=== PATIENT | female | born 1945 | race Caucasian/White ===

== ENCOUNTER → 2016-08-06 | Outpatient (REF) | payer MEDICARE, BC | LOC: M LAB REF 16:22 | PROVIDERS: ATTEND Family Medicine | DX: I48.2 Chronic atrial fibrillation (principal) ==

== ENCOUNTER → 2016-11-20 | Outpatient (REF) | payer MEDICARE, BC ==
[2016-11-20 16:06] LABS: AMYLASE 72 U/L (25-115)
[2016-11-21 11:00] LABS: CONTROL LINE HPYORI INT CTR LINE PRESENT
== END ==
LOC: M LAB REF 15:34
PROVIDERS: ATTEND Nurse Practitioner Adult Health
DX: R14.0 Abdominal distension (gaseous) (principal)

== ENCOUNTER → 2017-04-10 | Outpatient (CLI) | payer MEDICARE, BC | LOC: M RAD 07:31 | DX: R93.3 Abnormal findings on diagnostic imaging of other parts of digestive tract (principal) | CPT/HCPCS: J2805 ==

== ENCOUNTER → 2017-04-15 | Outpatient (CLI) | payer MEDICARE, BC | LOC: M RAD 07:15 | DX: R93.3 Abnormal findings on diagnostic imaging of other parts of digestive tract (principal); R19.4 Change in bowel habit; R14.3 Flatulence; R60.9 Edema, unspecified | CPT/HCPCS: 76705 ==

== ENCOUNTER → 2017-09-21 | Outpatient (REF) | payer MEDICARE, BC ==
[2017-09-23 14:12] LABS: TISSUE TRANSGLUTAMINASE IgG 4 U/mL (0-5)
[2017-09-23 14:12] LABS: ENDOMYSIAL ABY IgA Negative (Negative)
== END ==
LOC: M LAB REF 15:00
DX: R19.7 Diarrhea, unspecified (principal); R14.3 Flatulence
CPT/HCPCS: 86255

== ENCOUNTER → 2018-01-15 | Outpatient (REF) | payer MEDICARE, BC ==
[2018-01-15 13:21] LABS: CREATININE FOR GFR 1.29 MG/DL (0.55-1.30)
[2018-01-15 13:21] LABS: BLOOD UREA NITROGEN 25 MG/DL (7-18)
== END ==
LOC: M LABNEURO 12:09
DX: N18.9 Chronic kidney disease, unspecified (principal)
CPT/HCPCS: 82565

== ENCOUNTER → 2018-03-22 | Outpatient (REF) | payer MEDICARE, BC ==
[2018-03-25 00:31] LABS: PANCREATIC ELASTASE STOOL >500 (>200)
== END ==
LOC: M LAB REF 10:49
PROVIDERS: ATTEND Internal Medicine Gastroenterology
DX: R14.3 Flatulence (principal); R93.3 Abnormal findings on diagnostic imaging of other parts of digestive tract; R19.7 Diarrhea, unspecified

== ENCOUNTER → 2018-06-22 | Outpatient (REF) | payer MEDICARE, BC ==
[2018-06-22 19:11] LABS: INR 2.84; PROTHROMBIN TIME 30.5 SECONDS (12.1-14.4)
[2018-06-22 19:35] LABS: AMYLASE 69 U/L (25-115); GAMMA GLUTAMYLTRANSPEPTIDASE 192 U/L (5-55); LIPASE 217 U/L (73-393)
== END ==
LOC: M LAB REF 17:44
PROVIDERS: ATTEND Family Medicine
DX: R10.13 Epigastric pain (principal); R18.8 Other ascites

== ENCOUNTER → 2018-07-05 | Outpatient (CLI) | payer MEDICARE, BC ==
[~2018-07-05] MED LIST: ALDA50TA2 PO; ALPR0.254 PO; BIOT10009 PO; CARB25TA9 PO; CARD40TA PO; COUM2.5T17 PO; COZA1TAB PO; DILT120C77 PO; GAS-CAP4 PO; GNP150TA PO; JANU100T PO; KLOR10TA76 PO; METF500T13 PO; METO200T28 PO; PHILCAP4 PO; PRAV1TAB39 PO; PREV10CA PO; SERT-141 PO; TORS100T PO; TORS20TA2 PO; XANA0.25 PO; [UNRECOGNIZED DRUG - CODE] PO
--- NOTE | 2018-07-05 14:45 | REP ---
Clinical: Shortness of breath with history of mitral stenosis and CHF. Technique: PA and lateral. Comparison: 06/24/2018. Findings: Stable cardiomegaly and diffuse chronic interstitial changes are again noted. Mild chronic interstitial edema cannot be excluded. No focal consolidation. No effusion. No pneumothorax. Skeletal structures intact. Impression: Stable cardiomegaly and chronic interstitial changes. Electronically Signed by Daniel Isabel MD 07/05/2018 02:37 P
[2018-07-05 18:03] LABS: BASO # 0.1 10^3/uL (0.0-0.2); BASO % 0.4 % (0.0-1.0); EOS # 0.1 10^3/uL (0.0-0.50); EOS % 0.8 % (0.0-3.0); HEMATOCRIT 43.9 % (36.0-47.0); HEMOGLOBIN 13.7 g/dl (12.0-15.5); LYMPH # 1.3 10^3/uL (1.5-4.5); MEAN CORPUSCULAR HEMOGLOBIN 27.1 pg (27.0-33.0); MEAN CORPUSCULAR HGB CONC 31.2 g/dl (32.0-36.5); MEAN CORPUSCULAR VOLUME 86.9 fl (80.0-96.0); MONO # 1.9 10^3/uL (0.0-0.8); MONO % 12.3 % (0.0-5.0); NEUTROPHILS # 12.3 10^3/uL (1.8-7.7); PLATELET COUNT, AUTOMATED 274 10^3/uL (150-450); RED BLOOD COUNT 5.05 10^6/uL (4.00-5.40); WHITE BLOOD COUNT 15.8 10^3/uL (4.0-10.0)
[2018-07-05 18:10] LABS: ALBUMIN 3.9 GM/DL (3.2-5.2); BILIRUBIN,TOTAL 1.9 MG/DL (0.2-1.0); CALCIUM LEVEL 9.1 MG/DL (8.8-10.2); CREATININE FOR GFR 1.2 MG/DL (0.55-1.30); GLOMERULAR FILTRATION RATE 46.8 (>39); POTASSIUM SERUM 4.2 MEQ/L (3.5-5.1); TOTAL PROTEIN 8.1 GM/DL (6.4-8.2)
[2018-07-05 18:18] LABS: INR 2.49; PROTHROMBIN TIME 27.4 SECONDS (12.1-14.4)
== END ==
LOC: M SMT 13:59
PROVIDERS: ATTEND Internal Medicine Cardiovascular Disease
DX: I51.7 Cardiomegaly (principal); I50.89 Other heart failure

== ENCOUNTER 2018-07-13 02:27 | Inpatient (IN) | payer MEDICARE, BC ==
[~2018-07-13] VITALS: Ht 165.1 cm; Wt 56.6 kg
[2018-07-13 03:03] LABS: BASO # 0.1 10^3/uL (0.0-0.2); BASO % 0.4 % (0.0-1.0); EOS # 0.6 10^3/uL (0.0-0.50); HEMATOCRIT 40.2 % (36.0-47.0); HEMOGLOBIN 12.7 g/dl (12.0-15.5); LYMPH % 8.5 % (24.0-44.0); MEAN CORPUSCULAR HEMOGLOBIN 26.5 pg (27.0-33.0); MEAN CORPUSCULAR HGB CONC 31.6 g/dl (32.0-36.5); MEAN CORPUSCULAR VOLUME 83.9 fl (80.0-96.0); MONO % 8.8 % (0.0-5.0); NEUTROPHILS # 8.8 10^3/uL (1.8-7.7); NEUTROPHILS % 76.6 % (36.0-66.0); PLATELET COUNT, AUTOMATED 242 10^3/uL (150-450); RED BLOOD COUNT 4.79 10^6/uL (4.00-5.40); WHITE BLOOD COUNT 11.5 10^3/uL (4.0-10.0)
[2018-07-13] MEDS ORDERED: ALPR0.254 PO (03:12)
[2018-07-13] MEDS ORDERED: COZA1TAB PO (03:12)
[2018-07-13] MEDS ORDERED: TORS20TA2 PO (03:12)
[2018-07-13] MEDS ORDERED: JANU100T PO (03:12)
[2018-07-13] MEDS ORDERED: METF500T13 PO (03:12)
[2018-07-13] MEDS ORDERED: GNP150TA PO (03:12)
[2018-07-13] MEDS ORDERED: CARB25TA9 PO (03:12)
[2018-07-13] MEDS ORDERED: [UNRECOGNIZED DRUG - CODE] PO (03:12)
[2018-07-13] MEDS ORDERED: SERT-141 PO (03:12)
[2018-07-13] MEDS ORDERED: PRAV1TAB39 PO (03:12)
[2018-07-13] MEDS ORDERED: KLOR10TA76 PO (03:12)
[2018-07-13] MEDS ORDERED: CARD40TA PO (03:12)
[2018-07-13] MEDS ORDERED: ALDA50TA2 PO (03:12)
[2018-07-13] MEDS ORDERED: COUM2.5T17 PO (03:12)
[2018-07-13 03:22] LABS: PROTHROMBIN TIME 56.6 SECONDS (12.1-14.4)
[2018-07-13 03:23] LABS: PARTIAL THROMBOPLASTIN TIME 81.2 SECONDS (25.4-37.6)
[2018-07-13 03:34] LABS: INFLUENZA A AMPLIFICATION NEGATIVE (NEGATIVE); INFLUENZA B AMPLIFICATION NEGATIVE (NEGATIVE)
[2018-07-13 03:46] LABS: ALBUMIN 3.8 GM/DL (3.2-5.2); ALT/SGPT 13 U/L (12-78); BILIRUBIN,DIRECT 0.6 MG/DL (0.0-0.2); BILIRUBIN,TOTAL 1.2 MG/DL (0.2-1.0); BLOOD UREA NITROGEN 29 MG/DL (7-18); CALCIUM LEVEL 8.7 MG/DL (8.8-10.2); CARBON DIOXIDE LEVEL 29 MEQ/L (21-32); CHLORIDE LEVEL 93 MEQ/L (98-107); CK-MB VALUE MASS < 1.0 NG/ML (<3.6); CPK CREATINE PHOSPHOKINASE 42 U/L (26-192); CREATININE FOR GFR 1.41 MG/DL (0.55-1.30); FREE T4 1.85 NG/DL (0.76-1.46); GLOMERULAR FILTRATION RATE 38.8 (>39); GLUCOSE, FASTING 174 MG/DL (70-100); LIPASE 196 U/L (73-393); MB/CK RELATIVE INDEX 2.38 (< OR =4); NT-PRO BNP 1542 PG/ML (<125); POTASSIUM SERUM 4.4 MEQ/L (3.5-5.1); SODIUM LEVEL 130 MEQ/L (136-145); TOTAL PROTEIN 7.9 GM/DL (6.4-8.2); TROPONIN I < 0.02 NG/ML (< 0.10)
[2018-07-13 03:54] LABS: INR 6.2
[2018-07-13] MEDS ORDERED: FUROSEMIDE 40 MG/4 ML VIAL (J1940) IV ONE (05:15)
--- NOTE | 2018-07-13 05:45 | ECGEPIP ---
Stationary ECG Study [facility] - ED Test Date: 2018-07-13 Pat Name: JORGE WYMAN Department: Room: - Gender: F Front Services Agent: shorty : 1945 Requested By: NATALIO Martines Order Number: [id number] Reading MD: Julius Perez Measurements Intervals [place] Rate: 104 P: NV: 0 QRS: -14 QRSD: 96 T: 132 QT: 351 QTc: 463 Interpretive Statements ATRIAL FIBRILLATION WITH RAPID VENTRICULAR RESPONSE ST DEVIATION AND MODERATE T-WAVE ABNORMALITY, CONSIDER LATERAL ISCHEMIA NO PRIORS FOR COMPARISON Electronically Signed On 07-13-2018 5:45:40 EDT by Julius Perez
--- NOTE | 2018-07-13 05:53 | HPEPDOC ---
[facility] Medical History & Physical Date of Admission Jul 13, 2018 Primary Care Physician: CINDY CURRAN M.D. History and Physical CHIEF COMPLAINT: Lower extremity swelling HISTORY OF PRESENT ILLNESS: Patient is a 72-year-old female with past medical history of congestive heart failure of unknown type, Parkinson's disease, mitral valve repair, DM, atrial fibrillation on warfarin presents to ER with complaints of cough and lower extremities swelling for the past 2 days. Patient stated that she has been in ER for 3 times in the past month with the previous time in [place] as she travels there often with her . Almost all admissions are due to heart failure exacerbation with lower extremity swelling as well as abdom inal distention. She reportedly has been started on a new medication regimen with Aldactone and torsemide which resulted in significant weight loss in the past 2 weeks however since the past 2 days she has gained several pounds back along with worsening abdominal distention and no extremity swelling. Apart from the symptoms mentioned, cough and shortness of breath she has no other complaints. Denies any fever or chills. Of note, patient follows with Dr. Bustos and is supposed to get a cardiac catheterization tomorrow at [facility] to determine the underlying cause of her cardiomyopathy. She denies any chest pain. PAST MEDICAL HISTORY: 1. Congestive heart failure, last ECHO 1 month prior with impression that EF was 55% per . 2. Valve repair. 3. Fibrillation warfarin. 4. DM 5. Parkinson's disease PAST SURGICAL HISTORY: 1. Mitral valve surgery 35 years prior. 2. Surgery on face for melanoma. SOCIAL HISTORY: Social alcohol use. Denies tobacco or illicit drug use FAMILY HISTORY: Father with coronary artery disease ALLERGIES: Please see below. REVIEW OF SYSTEMS: 10 point review of system negative except as stated in HPI HOME MEDICATIONS: Please see below. PHYSICAL EXAMINATION: General: Moderate distress worse with talking and exertion. cough+ wet. Eyes: Normal sclera, EOMI, VALERIANO HENT: Atraumatic, neck supple, moist mucous membranes Cardiovascular: Irregular irregular rhythm, tachycardic. 2+ pitting edema b/l. Pulmonary: Diffuse rales b/l. GI: Soft, nontender, distended. Skin: Warm and dry Neuro: CN grossly intact. No focal deficits. Strengths equal b/l. Psych: oriented x 3 LABORATORY DATA: See below. IMAGING: CXR- significant cardiomegaly as read by me. f/u official report. MICROBIOLOGY: Please see below. ASSESSMENT AND PLAN: 1. CHF exacerbation - Last ECHO in [place] 1 month prior with reported 55% as remembered by . - Given recent ECHO, unsure to repeat or try to obtain records in AM. - Diurese with IV lasix. - Daily weights, I/O. - Consider cardiology consult with Dr. Bustos as patient follows with him and has an appt tomorrow. 2. MVR - On warfarin supratherapeutic. - Hold warfarin. 3. Supratherapeutic INR - Hold warfarin. INR >6. - No evidence of bleeding. - No urgency to give any vit K at this time as patient is not bleeding. - Monitor INR, resume when therapeutic. 4. Afib - Resume other meds apart from AC due to high INR. - Currently in Afib with HR low 100s. Patient is high risk due to CHF exacerbation Estimated length of stay 2-3 days with expected disposition to home. Vital Signs Vital Signs Date Time Temp Pulse Resp B/P (MAP) Pulse Ox O2 Delivery O2 Flow Rate FiO2 07/13/18 05:11 97.6 115 17 101/57 (72) 93 Room Air Laboratory Data Labs 24H Laboratory Tests 2 07/13/18 02:56: Immature Granulocyte % (Auto) 0.7, White Blood Count 11.5H, Red Blood Count 4. 79, Hemoglobin 12.7, Hematocrit 40.2, Mean Corpuscular Volume 83.9, Mean Corpuscular Hemoglobin 26.5L, Mean Corpuscular Hemoglobin Concent 31.6L, Red Cell Distribution Width 20.2H, Platelet Count 242, Neutrophils (%) (Auto) 76.6H, Lymphocytes (%) (Auto) 8.5L, Monocytes (%) (Auto) 8.8H, Eosinophils (%) (Auto) 5.0H, Basophils (%) (Auto) 0.4, Neutrophils # (Auto) 8.8H, Lymphocytes # (Auto) 1.0L, Monocytes # (Auto) 1.0H, Eosinophils # (Auto) 0.6H, Basophils # (Auto) 0.1, Nucleated Red Blood Cells % (auto) 0.0, Prothrombin Time 56.6H, Prothromb Time International Ratio 6.20*H, Activated Partial Thromboplast Time 81.2H, Anion Gap 8, Glomerular Filtration Rate 38.8L, Calcium Level 8.7L, Aspartate A shannan Transf (AST/SGOT) 33, Alanine Aminotransferase (ALT/SGPT) 13, Alkaline Phosphatase 124H, Total Bilirubin 1.2H, Direct Bilirubin 0.6H, Total Creatine Kinase 42, Creatine Kinase MB < 1.0, Creatine Kinase MB Relative Index 2.38, Troponin I < 0.02, FK-Tpa-Q-Type Natriuretic Peptide 1542H, Total Protein 7.9, Albumin 3.8, Albumin/Globulin Ratio 0.93L, Lipase 196, Thyroid Stimulating Hormone (TSH) 2.800, Free Thyroxine 1.85H, Influenza Type A (RT-PCR) NEGATIVE, Influenza Type B (RT-PCR) NEGATIVE CBC/BMP Laboratory Tests 07/13/18 02:56 Red Blood Count 4.79, Mean Corpuscular Volume 83.9, Mean Corpuscular Hemoglobin 26.5 L, Mean Corpuscular Hemoglobin Concent 31.6 L, Red Cell Distribution Width 20.2 H, Neutrophils (%) (Auto) 76.6 H, Lymphocytes (%) (Auto) 8.5 L, Monocytes ( %) (Auto) 8.8 H, Eosinophils (%) (Auto) 5.0 H, Basophils (%) (Auto) 0.4, Neutrophils # (Auto) 8.8 H, Lymphocytes # (Auto) 1.0 L, Monocytes # (Auto) 1.0 H, Eosinophils # (Auto) 0.6 H, Basophils # (Auto) 0.1 Home Medications Scheduled Carbidopa/Levodopa (Carbidopa-Levodopa 25-100 Tab) 1 Each Tablet, 1 TAB PO TID Diltiazem HCl (Cardizem) 30 Mg Tablet, 30 MG PO TID Losartan Potassium (Cozaar) 25 Mg Tablet, 25 MG PO DAILY Metformin HCl (Metformin HCl) 500 Mg Tablet, 500 MG PO BID Metoprolol Succinate (Kapspargo Sprinkle) 200 Mg Cap.spr.24, 200 MG PO DAILY Potassium Chloride (Klor-Con M10) 10 Meq Tab.er.prt, 10 MEQ PO BID Pravastatin Sodium (Pravachol) 20 Mg Tablet, 20 MG PO DAILY Ranitidine HCl (Acid Control) 150 Mg Tablet, 150 MG PO DAILY Sertraline Hcl (Sertraline HCl) 50 Mg Tablet, 50 MG PO DAILY Sitagliptin Phosphate (Januvia) 100 Mg Tablet, 50 MG PO DAILY Spironolactone (Aldactone) 50 Mg Tablet, 50 MG PO DAILY Torsemide (Torsemide) 20 Mg Tablet, 40 MG PO DAILY Warfarin Sodium (Coumadin) 2.5 Mg Tablet, 2.5 MG PO DAILY Scheduled PRN Alprazolam (Alprazolam Odt) 0.25 Mg Tab.rapdis, 0.25 MG PO BID PRN for ANXIETY Allergies Coded Allergies: Sulfa (Sulfonamide Antibiotics) (Verified Allergy, Intermediate, 07/13/18) GLORIA HAWKINS MD Jul 13, 2018 05:53
[2018-07-13] MEDS ORDERED: XANA0.25 PO (05:54)
[2018-07-13] MEDS ORDERED: TORS100T PO (05:54)
[2018-07-13] MEDS ORDERED: METO200T28 PO (05:54)
[2018-07-13] MEDS ORDERED: DILT120C77 PO (05:54)
--- NOTE | 2018-07-13 05:55 | REPVR ---
EXAM: CT Chest Without Contrast EXAM DATE/TIME: 07/13/2018 3:29 AM CLINICAL HISTORY: 72 years old, female; Signs and symptoms; Cough; Additional info: SOB, cough TECHNIQUE: Imaging protocol: Axial computed tomography images of the chest without intravenous contrast. Coronal and sagittal reformatted images were created and reviewed. 3D rendering: MIP reconstructed images were created and reviewed. Radiation optimization: All CT scans at this facility use at least one of these dose optimization techniques: automated exposure control; mA and/or kV adjustment per patient size (includes targeted exams where dose is matched to clinical indication); or iterative reconstruction. COMPARISON: CR Chest, 2 view PA, Lat 07/13/2018 3:09 AM FINDINGS: Lungs: Diffuse bilateral ground glass opacities, right greater than left may represent inflammation, edema, or infection. No focal consolidation. Pleural space: Normal. No pneumothorax. No pleural effusion. Heart: Cardiomegaly. Coronary calcifications. Pulmonary arteries: Main pulmonary artery is enlarged measuring approximately 4.0 cm representing pulmonary hypertension. Aorta: Normal. No aortic aneurysm. Lymph nodes: Multiple enlarged mediastinal lymph nodes measuring up to 10 mm; reactive. Multiple subcentimeter bilateral axillary lymph nodes. Bones/joints: Diffuse demineralization of the bones with degenerative changes. Soft tissues: Unremarkable. Intraperitoneal space: Trace ascites partially seen. Other findings: Atherosclerosis. IMPRESSION: Diffuse bilateral ground glass opacities, right greater than left may represent inflammation, edema, or infection. No focal consolidation. Multiple enlarged mediastinal lymph nodes measuring up to 10 mm; reactive. Electronically signed by: Lisa Cifuentes On 07/13/2018 05:55:41 AM
[2018-07-13] MEDS ORDERED: BIOT10009 PO (05:56)
[2018-07-13] MEDS ORDERED: PREV10CA PO (05:56)
[2018-07-13] MEDS ORDERED: PHILCAP4 PO (05:56)
[2018-07-13] MEDS ORDERED: GAS-CAP4 PO (05:56)
[2018-07-13 06:44] VITALS: BP 113/65
--- NOTE | 2018-07-13 07:30 | REP ---
PA and lateral chest: Comparison is 07/05/2018. There is cardiomegaly, unchanged. There are no focal infiltrates. There are no pleural effusions. There are no masses or nodules. The interstitium is mildly coarsened, unchanged. Impression: Cardiomegaly and mild interstitial coarsening, unchanged. Electronically Signed by George Lewis MD 07/13/2018 07:21 A
[2018-07-13 08:00] VITALS: BP 105/73
[2018-07-13] MEDS: FUROSEMIDE 100 MG/10 ML VIAL (J1940) IV SCH ×2 (08:00→17:45)
[2018-07-13] MEDS ORDERED: LOSARTAN 25 MG TAB PO SCH (09:00)
[2018-07-13] MEDS: SINEMET 25-100 MG TAB PO SCH ×3 (09:36→21:44)
[2018-07-13] MEDS: POTASSIUM CHLORIDE 10 MEQ SR TABLET PO SCH ×2 (09:37→21:44)
[2018-07-13] MEDS: PRAVASTATIN 20 MG TAB PO SCH (09:37)
[2018-07-13] MEDS: METOPROLOL SUCC (TopROL XL) 100MG *XL* TAB PO SCH (10:38)
[2018-07-13 12:00] VITALS: BP 112/56
[2018-07-13 16:00] VITALS: BP 98/57
[2018-07-13 20:00] VITALS: BP 119/75
[2018-07-13] MEDS: ALPRAZolam 0.25 MG TAB PO PRN (21:43)
[2018-07-13] MEDS: SERTRALINE HCL 50 MG TAB PO SCH (21:44)
[2018-07-13 23:59] VITALS: BP 110/72
[2018-07-14] MEDS: FUROSEMIDE 100 MG/10 ML VIAL (J1940) IV SCH ×3 (00:30→16:37)
[2018-07-14 04:00] VITALS: BP 134/79
[2018-07-14 05:47] LABS: INR 4.17; PROTHROMBIN TIME 41.3 SECONDS (12.1-14.4)
[2018-07-14 05:58] LABS: CALCIUM LEVEL 8.5 MG/DL (8.8-10.2); CREATININE FOR GFR 1.2 MG/DL (0.55-1.30); GLOMERULAR FILTRATION RATE 46.8 (>39); POTASSIUM SERUM 3.9 MEQ/L (3.5-5.1)
[2018-07-14 08:00] VITALS: BP 115/61
--- NOTE | 2018-07-14 08:58 | CR ---
DATE OF CONSULTATION: 07/14/2018 REFERRING PHYSICIAN: Emergency room Dr. Morris. INDICATION: Congestive heart failure. HISTORY OF PRESENT ILLNESS: Mrs. Wallace is well known to me. She is a 72-year-old female who has a history of rheumatic mitral stenosis and underwent commissurotomy in 1972. She has had chronic atrial fibrillation since approximately 2006 and over the time has had symptoms of right sided congestive heart failure. She presented to [facility] emergency room for persistent cough and shortness of breath. I have been seeing patient for many years. She was doing relatively well but deteriorated last fall and then her condition dramatically worsened over the winter when she was in [place]. I saw her after her return and she was in florid, more right sided than left sided heart failure. I increase the dosage of diuretics markedly and she accomplished fairly significant weight loss but unfortunately it did not translate into subjective improvement. She was scheduled to undergo cardiac catheterization right and left but instead the day before presented to our emergency room. She had a chest x-ray and CT both consistent with congestive heart failure and was admitted for further management. At bedside today, she tells me she is feeling a little better. Her dominant complaint remains weakness and chronic cough that is mostly nonproductive. She also does have some abdominal bloating and anorexia. Yesterday she was started on furosemide 60 mg every 8 hours and her fluid balance yesterday was not overly negative but she already put out 800 mL as of this morning. The weight though today is documented 60.9 kg which is actually 1 kg up since yesterday. She denies any chest pain. She denies any sensation of palpitations. PAST MEDICAL HISTORY: 1. History of mitral stenosis as described above. Her last echocardiogram in our office was in February 2018 and revealed preserved left ventricular systolic function with ejection fraction estimated 50-55%, approximately moderate mitral stenosis with mean gradient 7 mmHg, mild pulmonary hypertension, moderate tricuspid insufficiency and severe biatrial enlargement. 2. Chronic atrial fibrillation. 3. Type 2 diabetes. 4. History of hypertension. 5. History of dyslipidemia. 6. History of resection of melanoma from her right restoration in 2014. 7. Known Parkinson disease since 2015. SURGICAL HISTORY: 1. Tonsillectomy. 2. Excision of melanoma from right restoration. 3. Commissurotomy. FAMILY HISTORY: No first dgr. relatives with early coronary artery disease. SOCIAL HISTORY: Patient is and live with her . She does not smoke and does not drink. REVIEW OF SYSTEMS: She denies any recent fever, chills, nausea, vomiting or diarrhea. She has had anorexia over time and eats principally fruits and occasionally eggs. She denies any bleeding history even though she has had wide swing in her INR with very difficult keeping it in therapeutic range. No genitourinary symptoms. She has had chronic peripheral edema markedly worse over the last several months. No history of syncope or near syncope. PHYSICAL EXAMINATION: Mrs. Wallace is a 72-year-old female who appears approximately her age. She appears chronically but not acutely ill. She has been coughing during the exam. Last set of vital signs: Blood pressure 134/79, heart rate has been from 70s to 120s atrial fibrillation, saturation is 96% on room air. She is afebrile. Weight documented this morning 60.9 kg. Her jugular venous pulse is about 6-7 cm above clavicle. Lungs are relatively clear with only occasional fine crackle and rhonchi. Air movement seems to be good. Somewhat diminished breath sounds over bases with fair inspiratory effort. Heart exam reveals irregular rhythm. Precordial impulse does not appear displaced. I do not appreciate any systolic or diastolic murmur. Abdomen is soft. There is by physical exam, a small amount of ascites. The liver and spleen do not appear markedly enlarged. There is about 2-3+ edema to her knees. Neurologically, there is generalized weakness but otherwise she is intact. LABORATORY DATA: Her INR today was 4.2, it was 6.2 yesterday even though she was holding her Coumadin 2 days prior to admission due to pending cardiac catheterization. Basic metabolic panel as of this morning: Sodium 134, potassium 3.9, BUN 22, creatinine 1.2 for glomerular filtration rate 46 and glucose 176. CBC reveals hemoglobin 12.7, hematocrit 40, platelet count 242,000. She had an electrocardiogram that revealed atrial fibrillation with ventricular rate 103 beats per minute. There are nonspecific repolarization abnormalities. She had also CT of the chest that is consistent with congestive heart failure. There are very enlarged pulmonary arteries indicating likely presence of significant pulmonary hypertension. In differential diagnosis, her interstitial infiltrates could potentially represent alternative interstitial process but it seems unlikely. ASSESSMENT AND PLAN: Mrs. Wallace is a 72-year-old female who has known mitral stenosis for many, many years and underwent commissurotomy in 1972. She presents with gradually progressive right sided heart failure that markedly deteriorated over the winter months when she was in [place]. The degree of mitral stenosis based on prior echocardiograms did not seem to be sufficiently high to explain the severity of her presentation but nevertheless, I assume that we may have underestimated the severity or there is a concomitant secondary process. I do still believe that it is appropriate to proceed with right and left heart catheterization for definite assessment and she might need mitral valve replacement. In the interim though, we need to accomplish sufficient diuresis. She is very volume overloaded with evidence of both left sided and right sided heart failure. Because she did not have truly sufficient diuretic response, I am going to increase the dose of diuretic further and add spironolactone. Also her heart rate unfortunately is not well controlled. People with mitral stenosis are vastly better if their heart rate is relatively bradycardic rather than tachycardic. Unfortunately we are limited by low blood pressure. I will not make any changes today because this tachycardia is relatively new to her and can be a sign of volume overloaded state but if it continues to be a problem, we may need to add Digoxin and possibly discontinue Cardizem. My tentative plan would be to accomplish diuresis, wait until her INR drops down so she can be transferred for cardiac catheterization. I spoke about this with the patient and her extensively. ZENA
[2018-07-14] MEDS ORDERED: SPIRONOLACTONE 25 MG TAB PO SCH (09:00)
[2018-07-14] MEDS: POTASSIUM CHLORIDE 10 MEQ SR TABLET PO SCH ×2 (09:08→21:00)
[2018-07-14] MEDS: METOPROLOL SUCC (TopROL XL) 100MG *XL* TAB PO SCH (09:08)
[2018-07-14] MEDS: SINEMET 25-100 MG TAB PO SCH ×3 (09:09→21:00)
[2018-07-14] MEDS: PRAVASTATIN 20 MG TAB PO SCH (09:09)
[2018-07-14 12:00] VITALS: BP 105/59
--- NOTE | 2018-07-14 13:56 | IPNPDOC ---
Subjective Date Seen The patient was seen on 07/14/18. Subjective Chief Complaint/HPI Patient is comfortable. She feels slightly better. General: Reports: Normal Appetite; Denies: Chills, Night Sweats, Fatigue, Malaise Constitutional: Denies: Chills, Fever, Night Sweats Eyes: Denies: Pain, Vision change ENT: Denies: Head Aches, Ear Pain, Dysphagia Skin: Denies: Rash, Lesions, Breakdown Pulmonary: Denies: Dyspnea, Cough Cardiovascular: Denies: Chest Pain, Palpitations, Orthopnea, Paroxysmal Noc. Dyspnea, Lt Headedness Gastrointestinal: Denies: Nausea, Vomiting, Abdominal Pain, Diarrhea, Constipation Genitourinary: Denies: Dysuria, Frequency, Incontinence, Retention Hematologic: Denies: Bruising, Bleeding Excessively Musculoskeletal: Denies: Neck Pain, Back Pain, Joint Pain, Muscle Pain, Spasms Neurological: Denies: Weakness, Numbness, Change in speech, Confusion Psych: Reports: Mood Normal; Denies: Depression, Memory Issues Objective Physical Examination General Exam: Positive: Alert, No Acute Distress Eye Exam: Positive: PERRLA, Conjunctiva & lids normal, EOMI; Negative: Sclera icteric ENT Exam: Positive: Atraumatic, Mucous membr. moist/pink, Pharynx Normal Neck Exam: Positive: Supple; Negative: JVD, thyromegaly Chest Exam: Positive: Clear to auscultation, Normal air movement, Other (crackles at bases) Heart Exam: Positive: Rate Normal, Normal S1, Normal S2; Negative: Murmurs, Rubs Telemetry: Positive: No significant arrhythmia, Tachycardia Abdomen Exam: Positive: Normal bowel sounds, Soft; Negative: Tenderness, Hepatospenomegaly Female Exam: Positive: Nl Ext Genitalia; Negative: Lesions, Discharge, Odor, Tenderness Extremity Exam: Positive: Normal pulses; Negative: Clubbing, Cyanosis, Edema Skin Exam: Positive: Nl turgor and temperature; Negative: Rash, Breakdown Neuro Exam: Positive: Normal Gait, Normal Speech, Cranial Nerves 3-12 NL, Reflexes 2+ Psych Exam: Positive: Mental status NL, Mood NL, Oriented x 3 Assessment /Plan Problems (1) Congestive heart failure (CHF) Status: Acute Problem Text: Cardiology consult appreciated Patient to be diuresed with Lasix as per orders Monitor I&O's Continue on present meds Possible transfe r for cardiac cath. Once INR is within therapeutic range Patient and family aware about the care and management. Agree with the plan (2) Supratherapeutic INR Status: Acute Problem Text: Slowly improving off Coumadin at the present time Follow INR in a.m. (3) Diabetes mellitus Problem Text: Continue home medications FS blood sugar every before meals and at bedtime with coverage (4) Atrial fibrillation Problem Text: Ventricular rate is still high Continue close monitoring Continue present meds Plan/VTE VTE Prophylaxis Ordered?: Yes VS, I&O, 24H, Fishbone Vital Signs/I&O Vital Signs Date Time Temp Pulse Resp B/P (MAP) Pulse Ox O2 Delivery O2 Flow Rate FiO2 07/14/18 12:00 97.2 108 18 105/59 (74) 96 07/13/18 05:11 Room Air I&O- Last 24 Hours up to 6 AM 07/14/18 05:59 Intake Total 1200 ml Output Total 2200 ml Balance -1000 ml Laboratory Data 24H LABS Laboratory Tests 2 07/14/18 05:20: Prothrombin Time 41.3H, Prothromb Time International Ratio 4.17, Anion Gap 4L, Glomerular Filtration Rate 46.8, Blood Urea Nitrogen 22H, Creatinine 1.20, Sodium Level 134L, Potassium Level 3.9, Chloride Level 97L, Carbon Dioxide Level 33H, Calcium Level 8.5L CBC/BMP Laboratory Tests 07/14/18 05:20 Calcium Level 8.5 L RILEY RAMOS MD Jul 14, 2018 13:56
[2018-07-14 16:00] VITALS: BP 103/60
--- NOTE | 2018-07-14 17:22 | REP ---
Portable chest, 04:47 p.m., single AP sitting view: Comparison is 07/13/2018. Cardiomegaly and mild diffuse bilateral interstitial coarsening are again identified, unchanged. There are no focal infiltrates. No pleural effusions. The analisa, mediastinum, skeletal structures are unremarkable and unchanged. Impression: There is no interval change. Electronically Signed by George Lewis MD 07/14/2018 05:13 P
[2018-07-14 20:00] VITALS: BP 100/69
[2018-07-14] MEDS: ALPRAZolam 0.25 MG TAB PO PRN (20:59)
[2018-07-14] MEDS: SERTRALINE HCL 50 MG TAB PO SCH (21:00)
--- NOTE | 2018-07-14 21:36 | ECHO ---
DATE OF PROCEDURE: 07/14/2018 REFERRING PHYSICIAN: Dr. Bustos PATIENT LOCATION: Room 3218 REASON FOR ECHOCARDIOGRAM: CHF. 2D MEASUREMENTS: IVS: 0.81 cm LV: 3.9 cm LVPW: 0.93 cm LA: 4.1 cm Aorta: 2.5 cm IVC: 2.2 cm DOPPLER MEASUREMENTS: Peak velocity across the aortic valve: 1.5 m/s Peak velocity across the LVOT: 0.8 m/s Mitral E: 1.4 Maximum tricuspid valve velocity: 3.0 m/s 2D COMMENTS: 1. Normal left ventricular size, wall thickness and normal global left ventricular systolic ejection fraction. The estimated global left ventricular systolic ejection fraction is 55 to 60%. The anterior septum appeared to be dyskinetic. 2. Mildly enlarged left atrium. The right atrium also appeared to be mildly to moderately enlarged. Normal right ventricle. 3. Normal aortic root. 4. Trace pericardial effusion noted, no evidence of cardiac tamponade. 5. Mildly calcified aortic valve with normal leaflet excursion. Mildly calcified mitral annulus with normal anterior mitral valve leaflet motion. Normal tricuspid valve and pulmonic valve. The proximal pulmonary artery branches were not well visualized. 6. The inferior vena cava was dilated, central venous pressure might be elevated. DOPPLER: It detects trace aortic regurgitation, mild mitral regurgitation and moderate to severe eccentric tricuspid regurgitation as well as mild pulmonic regurgitation. The calculated pulmonary artery systolic pressure varies between 40 to 50 mmg. Assessment of the left ventricular diastolic function was limited in view of the underlying cardiac arrythmia, atrial fibrillation. IMPRESSION: 1. Normal global left ventricular systolic function with regional wall motion abnormalities involving the septum and atrial septum. 2. Assessment of the left ventricular diastolic function was limited in view of the underlying cardiac arhythmia, atrial fibrillation. 3. Aortic valve sclerosis with trace aortic regurgitation, but no aortic stenosis. 4. Mitral annulus calcification with mildly enlarged left atrium and mild mitral regurgitation. 5. Moderate tricuspid regurgitation with moderate pulmonary hypertension and dilated right atrium. 6. Trace pericardial effusion. 7. Mild pulmonic regurgitation.
[2018-07-14 23:59] VITALS: BP 111/65
[2018-07-15] VITALS (7 sets, daily range): BP systolic 93–117; BP diastolic 53–72
[2018-07-15] MEDS: FUROSEMIDE 100 MG/10 ML VIAL (J1940) IV SCH ×3 (00:14→16:35)
[2018-07-15 05:57] LABS: INR 3.4; PROTHROMBIN TIME 35.1 SECONDS (12.1-14.4)
[2018-07-15 06:07] LABS: CALCIUM LEVEL 8.4 MG/DL (8.8-10.2); CREATININE FOR GFR 1.04 MG/DL (0.55-1.30); GLOMERULAR FILTRATION RATE 55.1 (>39); POTASSIUM SERUM 3.8 MEQ/L (3.5-5.1)
--- NOTE | 2018-07-15 07:58 | IPN ---
DATE: 07/15/2018 Mrs. Wallace is feeling little bit better today. She still continues to cough a lot but she feels that there have been at least some improvement. Denies any chest pain or sensation of palpitations. Vital signs: Blood pressure is 116/67, heart rate has been from 70s to 120s on average probably in 80s. She is afebrile. Saturation 96% on 2 liters of oxygen. Her fluid balance yesterday was about 1900 mL negative documented weight is 59.6 kg. She is alert and oriented and appropriate. Her jugular venous pulse (JVP) is still high. Lungs are reasonably clear to auscultation. Though I do not appreciate any wheezing, there are occasional rhonchi. Heart: Exam reveals irregularly irregular rhythm. There is a murmur at the apex that is fairly faint that is systolic in nature. I do not appreciate any diastolic murmur as such. Abdomen is soft, nontender. She still has at least two to three peripheral edema and some shifting dullness in the abdomen, indicative of ascites. LABORATORY: Basic metabolic panel: Sodium 132, potassium 3.8, BUN is 19, creatinine 1.04 and glucose 164 and INR is 3.4 ASSESSMENT/PLAN: Mrs. Wallace is a 72-year-old female who has chronic atrial fibrillation and history of mitral stenosis. She had valvulotomy more than three decades ago. I have been following her since and she was doing clinically quite well until last fall when she started developing symptoms of right-sided congestive heart failure. She spent her winter in [place] and markedly deteriorated with prominent cough, shortness of breath and worsening peripheral edema and development of ascites. She did diurese already significantly on outpatient basis but currently is admitted for more diuresis. I am happy with her results yesterday. She lost a significant amount of fluid but she continues to be volume overloaded. To my surprise, her echocardiogram yesterday did not comment much about mitral stenosis, even though it has been well documented over time. My plan is unchanged. I tentatively recommend to continue diuretics. Because she is slightly hypokalemic, I am going to increase the dose of spironolactone. Ultimately, I would like her to have a heart catheterization that I already arranged on outpatient basis but it has been interrupted by this hospitalization. Because she her INR is quite high, I do not think it will be possible until Thursday. We should utilize this time to accomplish as much diuresis as possible.
[2018-07-15] MEDS: POTASSIUM CHLORIDE 10 MEQ SR TABLET PO SCH ×2 (09:48→21:02)
[2018-07-15] MEDS: SINEMET 25-100 MG TAB PO SCH ×3 (09:49→21:01)
[2018-07-15] MEDS: METOPROLOL SUCC (TopROL XL) 100MG *XL* TAB PO SCH (09:49)
[2018-07-15] MEDS: SPIRONOLACTONE 25 MG TAB PO SCH ×2 (09:49→16:34)
[2018-07-15] MEDS: PRAVASTATIN 20 MG TAB PO SCH (09:50)
--- NOTE | 2018-07-15 11:57 | IPNPDOC ---
Subjective Date Seen The patient was seen on 07/15/18. Subjective Chief Complaint/HPI Patient is comfortable just complaining of some cough General: Reports: Normal Appetite; Denies: Chills, Night Sweats, Fatigue, Malaise Constitutional: Denies: Chills, Fever, Night Sweats Eyes: Denies: Pain, Vision change ENT: Denies: Head Aches, Ear Pain, Dysphagia Skin: Denies: Rash, Lesions, Breakdown Pulmonary: Denies: Dyspnea, Cough Cardiovascular: Denies: Chest Pain, Palpitations, Orthopnea, Paroxysmal Noc. Dyspnea, Lt Headedness Gastrointestinal: Denies: Nausea, Vomiting, Abdominal Pain, Diarrhea, Constipation Genitourinary: Denies: Dysuria, Frequency, Incontinence, Retention Hematologic: Denies: Bruising, Bleeding Excessively Musculoskeletal: Denies: Neck Pain, Back Pain, Joint Pain, Muscle Pain, Spasms Neurological: Denies: Weakness, Numbness, Change in speech, Confusion Psych: Reports: Mood Normal; Denies: Depression, Memory Issues Objective Physical Examination General Exam: Positive: Alert, No Acute Distress Eye Exam: Positive: PERRLA, Conjunctiva & lids normal, EOMI; Negative: Sclera icteric ENT Exam: Positive: Atraumatic, Mucous membr. moist/pink, Pharynx Normal Neck Exam: Positive: Supple; Negative: JVD, thyromegaly Chest Exam: Positive: Clear to auscultation, Normal air movement, Other (crackles at bases) Heart Exam: Positive: Rate Normal, Normal S1, Normal S2; Negative: Murmurs, Rubs Telemetry: Positive: No significant arrhythmia, Tachycardia Abdomen Exam: Positive: Normal bowel sounds, Soft; Negative: Tenderness, Hepatospenomegaly Female Exam: Positive: Nl Ext Genitalia; Negative: Lesions, Discharge, Odor, Tenderness Extremity Exam: Positive: Normal pulses; Negative: Clubbing, Cyanosis, Edema Skin Exam: Positive: Nl turgor and temperature; Negative: Rash, Breakdown Neuro Exam: Positive: Normal Gait, Normal Speech, Cranial Nerves 3-12 NL, Reflexes 2+ Psych Exam: Positive: Mental status NL, Mood NL, Oriented x 3 Assessment /Plan Problems (1) Congestive heart failure (CHF) Status: Acute Problem Text: Cardiology consult appreciated Patient to be diuresed with Lasix as per orders Monitor I&O's Continue on present meds Possible transfe for cardiac cath. Once INR is within therapeutic range Patient and family aware about the care and management. Agree with the plan Will prescribe Robitussin-DM when necessary for cough (2) Supratherapeutic INR Status: Acute Problem Text: Slowly improving off Coumadin at the present time is 3.40 Follow INR in a.m., possibly bring INR down to 1.5 before transfer (3) Diabetes mellitus Problem Text: Continue home medications FS blood sugar every before meals and at bedtime with coverage (4) Atrial fibrillation Problem Text: Ventricular rate slowly improving. Current medications Cardiology follow-up was really appreciated Continue close monitoring Continue present meds Plan/VTE VTE Prophylaxis Ordered?: Yes VS, I&O, 24H, Fishbone Vital Signs/I&O Vital Signs Date Time Temp Pulse Resp B/P (MAP) Pulse Ox O2 Delivery O2 Flow Rate FiO2 07/15/18 09:49 99 117/59 07/15/18 08:00 98.7 20 92 07/13/18 05:11 Room Air I&O- Last 24 Hours up to 6 AM 07/15/18 06:00 Intake Total 960 ml Output Total 3450 ml Balance -2490 ml Laboratory Data 24H LABS Laboratory Tests 2 07/15/18 05:20: Prothrombin Time 35.1H, Prothromb Time International Ratio 3.40, Anion Gap 5L, Glomerular Filtration Rate 55.1, Blood Urea Nitrogen 19H, Creatinine 1.04, Sodium Level 132L, Potassium Level 3.8, Chloride Level 99, Carbon Dioxide Level 28, Calcium Level 8.4L CBC/BMP Laboratory Tests 07/15/18 05:20 Calcium Level 8.4 L RILEY RAMOS MD Jul 15, 2018 11:57
[2018-07-15] MEDS: guaiFENesin DM LIQ 10ML UD PO PRN ×2 (13:40→21:01)
[2018-07-15] MEDS ORDERED: GLUCOSE 4 GM CHEW TABLET PO PRN (17:00)
[2018-07-15] MEDS ORDERED: DEXTROSE 50% 50 ML SYRINGE IV PRN (17:00)
[2018-07-15] MEDS ORDERED: GLUCAGON FOR INJ 1 MG VIAL (J1610) SC PRN (17:00)
[2018-07-15] MEDS: HumaLOG INSULIN (NovoLOG) PER UNIT SC SCH ×2 (17:19→20:58)
[2018-07-15] MEDS: guaiFENesin ER 600 MG TAB PO SCH (18:59)
[2018-07-15] MEDS: SERTRALINE HCL 50 MG TAB PO SCH (21:01)
[2018-07-15] MEDS: ALPRAZolam 0.25 MG TAB PO PRN (21:01)
[2018-07-16] VITALS (7 sets, daily range): BP systolic 100–133; BP diastolic 62–76
[2018-07-16 05:33] LABS: INR 2.58; PROTHROMBIN TIME 28.2 SECONDS (12.1-14.4)
[2018-07-16 05:39] LABS: CALCIUM LEVEL 8.7 MG/DL (8.8-10.2); CREATININE FOR GFR 0.97 MG/DL (0.55-1.30); GLOMERULAR FILTRATION RATE 59.8 (>39); POTASSIUM SERUM 3.7 MEQ/L (3.5-5.1)
--- NOTE | 2018-07-16 07:53 | IPN ---
DATE: 07/16/2018 Mrs. Wallace is feeling a little better today. She feels that she is not coughing as much and she was able to sleep little bit better, also her peripheral edema has improved some. Her blood pressure this morning is 111/63 and it has been in the similar range or even lower most of the time. Heart rate was recorded 65 beats per minute but on average reviewing telemetry it is probably more in 80s and 90s. She is afebrile. Saturation 91% on room air. Her fluid balance yesterday was recorded negative 2 liters even though the oral intake probably was not documented correctly. Weight though is 60 kg which is actually slightly up since yesterday again I do not believe this is completely reliable. She is alert and oriented and appropriate. Her jugular venous pulse (JVP) is still high even though it looks lower than yesterday. Lungs are surprisingly clear to auscultation. I do not appreciate any crackles, wheezing or rhonchi and the air movement seems to be correct. Heart exam reveals irregularly irregular rhythm. No gallop is appreciated. Faint murmur at the apex. Abdomen still has evidence for ascites, but it seems to improve, it seems softer and not as full and peripheral edema is improved as well. LABORATORY: Basic metabolic panel reveals sodium 134, potassium 3.7, BUN 18, creatinine 1.0 for GFR 60 and glucose 130 and her INR is 2.6. ASSESSMENT AND PLAN: Mrs. Wallace is a 72-year-old female who has longstanding history of mitral stenosis, history of commissurotomy in 1970s. She also has chronic atrial fibrillation. She presented with both left and right-sided congestive heart failure and is slowly improving with diuresis. She is currently on spironolactone 25 mg twice a day and furosemide 80 mg every 8 hours. I do believe that we are making good progress but we are far from goal as yet. I will continue current doses of diuretics. The second issue is atrial fibrillation, she is reasonably well rate-controlled on combination of Cardizem and metoprolol. My plan was originally to perform coronary angiography in both right and left-sided heart catheterization on outpatient basis but the patient ended up in our hospital. I contacted Dr. Díaz in [facility] and there will be tentative plan to transfer her for the procedure on Thursday. In the interim, I hope to accomplish additional diuresis over the weekend. Please do cover the patient with Lovenox once her INR drops below 2. I will sign the patient off to the covering visiting professor for the weekend.
[2018-07-16] MEDS: HumaLOG INSULIN (NovoLOG) PER UNIT SC SCH ×4 (09:02→20:54)
[2018-07-16] MEDS: SPIRONOLACTONE 25 MG TAB PO SCH ×2 (09:03→16:16)
[2018-07-16] MEDS: guaiFENesin ER 600 MG TAB PO SCH ×2 (09:03→20:52)
[2018-07-16] MEDS: POTASSIUM CHLORIDE 10 MEQ SR TABLET PO SCH ×2 (09:04→20:53)
[2018-07-16] MEDS: SINEMET 25-100 MG TAB PO SCH ×3 (09:04→20:52)
[2018-07-16] MEDS: PRAVASTATIN 20 MG TAB PO SCH (09:04)
[2018-07-16] MEDS: METOPROLOL SUCC (TopROL XL) 100MG *XL* TAB PO SCH (09:51)
[2018-07-16] MEDS: FUROSEMIDE 100 MG/10 ML VIAL (J1940) IV SCH ×3 (09:56→16:18)
--- NOTE | 2018-07-16 13:31 | IPNPDOC ---
Subjective Date Seen The patient was seen on 07/16/18. Subjective Chief Complaint/HPI Patient complaining of occasional cough, but otherwise no new complaints General: Reports: Normal Appetite; Denies: Chills, Night Sweats, Fatigue, Malaise Constitutional: Denies: Chills, Fever, Night Sweats Eyes: Denies: Pain, Vision change ENT: Denies: Head Aches, Ear Pain, Dysphagia Skin: Denies: Rash, Lesions, Breakdown Pulmonary: Denies: Dyspnea, Cough Cardiovascular: Denies: Chest Pain, Palpitations, Orthopnea, Paroxysmal Noc. Dyspnea, Lt Headedness Gastrointestinal: Denies: Nausea, Vomiting, Abdominal Pain, Diarrhea, Constipation Genitourinary: Denies: Dysuria, Frequency, Incontinence, Retention Hematologic: Denies: Bruising, Bleeding Excessively Musculoskeletal: Denies: Neck Pain, Back Pain, Joint Pain, Muscle Pain, Spasms Neurological: Denies: Weakness, Numbness, Change in speech, Confusion Psych: Reports: Mood Normal; Denies: Depression, Memory Issues Objective Physical Examination General Exam: Positive: Alert, No Acute Distress Eye Exam: Positive: PERRLA, Conjunctiva & lids normal, EOMI; Negative: Sclera icteric ENT Exam: Positive: Atraumatic, Mucous membr. moist/pink, Pharynx Normal Neck Exam: Positive: Supple; Negative: JVD, thyromegaly Chest Exam: Positive: Clear to auscultation, Normal air movement, Other (crackles at bases) Heart Exam: Positive: Rate Normal, Normal S1, Normal S2; Negative: Murmurs, Rubs Telemetry: Positive: No significant arrhythmia, Tachycardia Abdomen Exam: Positive: Normal bowel sounds, Soft; Negative: Tenderness, Hepatospenomegaly Female Exam: Positive: Nl Ext Genitalia; Negative: Lesions, Discharge, Odor, Tenderness Extremity Exam: Positive: Normal pulses; Negative: Clubbing, Cyanosis, Edema Skin Exam: Positive: Nl turgor and temperature; Negative: Rash, Breakdown Neuro Exam: Positive: Normal Gait, Normal Speech, Cranial Nerves 3-12 NL, Reflexes 2+ Psych Exam: Positive: Mental status NL, Mood NL, Oriented x 3 Assessment /Plan Problems (1) Congestive heart failure (CHF) Status: Acute Problem Text: Cardiology follow-up appreciated Patient is currently on spironolactone 25 mg twice a day and furosemide 80 mg every 8 hours with good response Possible transfe for cardiac cath. Once INR is within therapeutic range Patient and family aware about the care and management. Agree with the plan Will prescribe Robitussin-DM when necessary for cough (2) Supratherapeutic INR Status: Acute Problem Text: Slowly improving off Coumadin at the present time is 3.40 Follow INR in a.m., possibly bring INR down to 1.5 before transfer Start Lovenox once INR under 2 (3) Diabetes mellitus Problem Text: Continue home medications FS blood sugar every before meals and at bedtime with coverage (4) Atrial fibrillation Problem Text: Ventricular rate slowly improving. Current medications Cardiology follow-up was really appreciated Continue close monitoring Continue present meds Plan/VTE VTE Prophylaxis Ordered?: Yes VS, I&O, 24H, Fishbone Vital Signs/I&O Vital Signs Date Time Temp Pulse Resp B/P (MAP) Pulse Ox O2 Delivery O2 Flow Rate FiO2 07/16/18 12:00 97.3 83 19 103/64 (77) 92 07/13/18 05:11 Room Air I&O- Last 24 Hours up to 6 AM 07/16/18 06:00 Intake Total 720 ml Output Total 1200 ml Balance -480 ml Laboratory Data 24H LABS Laboratory Tests 2 07/15/18 17:12: Bedside Glucose (Misc Panel) 214H 07/15/18 20:53: Bedside Glucose (Misc Panel) 111H 07/16/18 04:57: Prothrombin Time 28.2H, Prothromb Time International Ratio 2.58, Anion Gap 7L, Glomerular Filtration Rate 59.8, Blood Urea Nitrogen 18, Creatinine 0.97, Sodium Level 134L, Potassium Level 3.7, Chloride Level 98, Carbon Dioxide Level 29, Calcium Level 8.7L 07/16/18 12:26: Bedside Glucose (Misc Panel) 194H CBC/BMP Laboratory Tests 07/16/18 04:57 Calcium Level 8.7 L RILEY RAMOS MD Jul 16, 2018 13:31
[2018-07-16] MEDS: guaiFENesin DM LIQ 10ML UD PO PRN (15:19)
[2018-07-16] MEDS: ALPRAZolam 0.25 MG TAB PO PRN (17:07)
[2018-07-16] MEDS: SERTRALINE HCL 50 MG TAB PO SCH (20:53)
[2018-07-17] MEDS: FUROSEMIDE 100 MG/10 ML VIAL (J1940) IV SCH ×3 (00:14→15:50)
[2018-07-17 02:00] VITALS: BP_DIAS 58
[2018-07-17 04:00] VITALS: BP_SYST 100
[2018-07-17 05:50] LABS: HEMATOCRIT 38.7 % (36.0-47.0); HEMOGLOBIN 12.4 g/dl (12.0-15.5); MEAN CORPUSCULAR HEMOGLOBIN 26.4 pg (27.0-33.0); MEAN CORPUSCULAR VOLUME 82.5 fl (80.0-96.0); PLATELET COUNT, AUTOMATED 301 10^3/uL (150-450); RED BLOOD COUNT 4.69 10^6/uL (4.00-5.40); WHITE BLOOD COUNT 11.4 10^3/uL (4.0-10.0)
[2018-07-17 06:19] LABS: ALBUMIN 3.5 GM/DL (3.2-5.2); ALT/SGPT 14 U/L (12-78); BILIRUBIN,TOTAL 1.8 MG/DL (0.2-1.0); BLOOD UREA NITROGEN 18 MG/DL (7-18); CALCIUM LEVEL 8.7 MG/DL (8.8-10.2); CARBON DIOXIDE LEVEL 28 MEQ/L (21-32); CHLORIDE LEVEL 97 MEQ/L (98-107); CREATININE FOR GFR 0.96 MG/DL (0.55-1.30); GLOMERULAR FILTRATION RATE > 60.0 (>39); GLUCOSE, FASTING 190 MG/DL (70-100); POTASSIUM SERUM 3.7 MEQ/L (3.5-5.1); SODIUM LEVEL 134 MEQ/L (136-145); TOTAL PROTEIN 7.9 GM/DL (6.4-8.2)
[2018-07-17 06:39] LABS: INR 1.71; PROTHROMBIN TIME 20.4 SECONDS (12.1-14.4)
[2018-07-17 08:00] VITALS: BP 116/78
[2018-07-17] MEDS: guaiFENesin ER 600 MG TAB PO SCH ×2 (08:50→21:54)
[2018-07-17] MEDS: HumaLOG INSULIN (NovoLOG) PER UNIT SC SCH ×4 (08:50→21:00)
[2018-07-17] MEDS: METOPROLOL SUCC (TopROL XL) 100MG *XL* TAB PO SCH (08:50)
[2018-07-17] MEDS: SPIRONOLACTONE 25 MG TAB PO SCH ×2 (08:50→17:12)
[2018-07-17] MEDS: PRAVASTATIN 20 MG TAB PO SCH (08:51)
[2018-07-17] MEDS: SINEMET 25-100 MG TAB PO SCH ×3 (08:51→21:55)
[2018-07-17] MEDS: POTASSIUM CHLORIDE 10 MEQ SR TABLET PO SCH ×2 (08:51→21:55)
[2018-07-17] MEDS ORDERED: DIGOXIN 0.25 MG TAB PO SCH (09:00)
[2018-07-17 12:00] VITALS: BP 105/67
--- NOTE | 2018-07-17 12:25 | IPNPDOC ---
Subjective Date Seen The patient was seen on 07/17/18. Subjective Chief Complaint/HPI Patient's healthy overall. No new complaints at the present time General: Reports: Normal Appetite; Denies: Chills, Night Sweats, Fatigue, Malaise Constitutional: Denies: Chills, Fever, Night Sweats Eyes: Denies: Pain, Vision change ENT: Denies: Head Aches, Ear Pain, Dysphagia Skin: Denies: Rash, Lesions, Breakdown Pulmonary: Denies: Dyspnea, Cough Cardiovascular: Denies: Chest Pain, Palpitations, Orthopnea, Paroxysmal Noc. Dyspnea, Lt Headedness Gastrointestinal: Denies: Nausea, Vomiting, Abdominal Pain, Diarrhea, Constipation Genitourinary: Denies: Dysuria, Frequency, Incontinence, Retention Hematologic: Denies: Bruising, Bleeding Excessively Musculoskeletal: Denies: Neck Pain, Back Pain, Joint Pain, Muscle Pain, Spasms Neurological: Denies: Weakness, Numbness, Change in speech, Confusion Psych: Reports: Mood Normal; Denies: Depression, Memory Issues Objective Physical Examination General Exam: Positive: Alert, No Acute Distress Eye Exam: Positive: PERRLA, Conjunctiva & lids normal, EOMI; Negative: Sclera icteric ENT Exam: Positive: Atraumatic, Mucous membr. moist/pink, Pharynx Normal Neck Exam: Positive: Supple; Negative: JVD, thyromegaly Chest Exam: Positive: Clear to auscultation, Normal air movement, Other (crackles at bases) Heart Exam: Positive: Rate Normal, Normal S1, Normal S2; Negative: Murmurs, Rubs Telemetry: Positive: No significant arrhythmia, Tachycardia Abdomen Exam: Positive: Normal bowel sounds, Soft; Negative: Tenderness, Hepatospenomegaly Female Exam: Positive: Nl Ext Genitalia; Negative: Lesions, Discharge, Odor, Tenderness Extremity Exam: Positive: Normal pulses; Negative: Clubbing, Cyanosis, Edema Skin Exam: Positive: Nl turgor and temperature; Negative: Rash, Breakdown Neuro Exam: Positive: Normal Gait, Normal Speech, Cranial Nerves 3-12 NL, Reflexes 2+ Psych Exam: Positive: Mental status NL, Mood NL, Oriented x 3 Assessment /Plan Problems (1) Congestive heart failure (CHF) Status: Acute Problem Text: Cardiology follow-up appreciated Patient is currently on spironolactone 25 mg twice a day and furosemide 80 mg every 8 hours with good response Possible transfe for cardiac cath. Inr is 1.7, Start patient on Lovenox 1 mg/kg every 12 hours as per cardiology recommendations Patient and family aware about the care and management. Agree with the plan Will prescribe Robitussin-DM when necessary for cough (2) Supratherapeutic INR Status: Acute Problem Text: Slowly improving off Coumadin at the present time is 1.7 Follow INR in a.m., possibly bring INR down to 1.5 before transfer Lovenox 1 mg/kg every 12 hours on (3) Diabetes mellitus Problem Text: Continue home medications FS blood sugar every before meals and at bedtime with coverage (4) Atrial fibrillation Problem Text: Ventricular rate slowly improving. Current medications Cardiology follow-up was really appreciated Continue close monitoring Continue present meds Plan/VTE VTE Prophylaxis Ordered?: Yes VS, I&O, 24H, Fishbone Vital Signs/I&O Vital Signs Date Time Temp Pulse Resp B/P (MAP) Pulse Ox O2 Delivery O2 Flow Rate FiO2 07/17/18 08:51 99 07/17/18 08:50 116/78 07/17/18 08:00 98.3 19 93 07/13/18 05:11 Room Air I&O- Last 24 Hours up to 6 AM 07/17/18 06:00 Intake Total 460 ml Output Total 2975 ml Balance -2515 ml Laboratory Data 24H LABS Laboratory Tests 2 07/16/18 12:26: Bedside Glucose (Misc Panel) 194H 07/16/18 16:29: Bedside Glucose (Misc Panel) 199H 07/16/18 20:51: Bedside Glucose (Misc Panel) 232H 07/17/18 05:19: Nucleated Red Blood Cells % (auto) 0.0, Prothrombin Time 20.4H, Prothromb Time International Ratio 1.71, Anion Gap 9, Glomerular Filtration Rate > 60.0, Blood Urea Nitrogen 18, Creatinine 0.96, Sodium Level 134L, Potassium Level 3.7, Chloride Level 97L, Carbon Dioxide Level 28, Calcium Level 8.7L, Aspartate Amino Transf (AST/SGOT) 42H, Alanine Aminotransferase (ALT/SGPT) 14, Alkaline Phosphatase 129H, Total Bilirubin 1.8H, Total Protein 7.9, Albumin 3.5, Albumin/Globulin Ratio 0.80L 07/17/18 11:54: Bedside Glucose (Misc Panel) 273H CBC/BMP Laboratory Tests 07/17/18 05:19 Red Blood Count 4.69, Mean Corpuscular Volume 82.5, Mean Corpuscular Hemoglobin 26.4 L, Mean Corpuscular Hemoglobin Concent 32.0, Red Cell Distribution Width 20.6 H, Calcium Level 8.7 L, Aspartate Amino Transf (AST/SGOT) 42 H, Alanine Aminotransferase (ALT/SGPT) 14, Alkaline Phosphatase 129 H, Total Bilirubin 1.8 H, Total Protein 7.9, Albumin 3.5 RILEY RAMOS MD Jul 17, 2018 12:25
[2018-07-17] MEDS: ENOXAPARIN 60 MG/0.6 ML SYR (J1650) SC SCH (12:26)
--- NOTE | 2018-07-17 12:26 | IPN ---
DATE: 07/17/2018 Dr. Schuster providing weekend coverage for Dr. Vivienne Bustos. SUBJECTIVE: The patient is not having any dyspnea at rest or with very low levels of activity within her room. She is aware of ongoing bilateral leg edema. No chest pain or chest discomfort. No palpitations. She really does not have any voiced complaints at this time. PHYSICAL EXAMINATION: Temperature 98.3, pulse 99 (irregularly irregular), respiratory rate 18, blood pressure 116/78, oxygen saturation 93% on room air. Weight today is 59.1 kg which is down 0.9 kg from yesterday. She was net negative 1495 mL for the 24 hours of 07/16/2018. Jugular venous pulsations were at 13 cm. The first heart sound was variable intensity. No S3 appreciated. Grade 1 pansystolic murmur at the apex. No diastolic murmur could be appreciated. Respiratory expansion and effort was good. No crackles or wheezes. Abdomen was soft, nontender, with normal bowel sounds. 2 mm of bilateral pitting edema was present at mid and distal tibia level bilaterally. Mood and affect was normal. Speech was normal. LABORATORY WORK: 07/17/2018 was reviewed. Sodium 134, potassium 3.7, chloride 97, CO2 28, creatinine 0.96, estimated GFR greater than 60, glucose 190, total bilirubin 1.8. AST elevated at 42. ALT normal. Alkaline phosphatase elevated at 129. Albumin 3.5. Total protein 7.9. ASSESSMENT AND PLAN: 1. Right heart failure. Upon review of the chart, it is my understanding this patient's right heart failure is thought to be primarily on the basis of suspected at least moderate mitral stenosis and pulmonary hypertension. At this time, she remains decompensated, but is generating an excellent net negative fluid balance on IV furosemide. The plan is for her to be transferred to [facility] in [place] probably on Thursday next week where she will subsequently under hemodynamic assessment of her mitral valve and pulmonary circulation with left and right heart catheterization performed by Dr. Sunday Díaz. Her sodium is mildly low and she is now on a 1500 mL oral fluid restriction that I have ordered. Renal function remains normal. Continue furosemide 80 mg IV every 8 hours, Spironolactone 25 mg by mouth twice a day. 2. 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 It is my understanding upon review of the electronic medical record that the patient is thought to have at least moderate mitral stenosis and at least mild mitral regurgitation. As noted above, the plan is for her to be transferred to [facility] in [place] where she will undergo detailed hemodynamic assessment of her mitral valve and pulmonary circulation with left and right heart catheterization. 3. Chronic atrial fibrillation. Warfarin is presently on hold because of hypercoagulable state. It is also on hold because she is waiting cardiac catheterization. PT INR this morning was 1.71. I will place her on Lovenox while she awaits cardiac catheterization and with Coumadin remaining on hold. Her heart rate is mildly elevated at rest at the moment. I switched her from diltiazem extended release 120 mg daily over to digoxin. She will receive some additional digoxin today to help load it into her system faster. Continue metoprolol succinate 200 mg daily. Continue telemetry. 4. Chronic warfarin therapy. As noted above, warfarin is on hold while she awaits cardiac catheterization. She is currently subtherapeutic on her INR and I will therefore start her on Lovenox. Warfarin is on hold while she awaits cardiac catheterization.
[2018-07-17] MEDS ORDERED: ENOXAPARIN 100MG/1ML SYRINGE (J1650) SC SCH (12:30)
[2018-07-17] MEDS ORDERED: DIGOXIN 0.25 MG TAB PO ONE ×2 (15:00→21:00)
[2018-07-17 16:00] VITALS: BP 118/68
[2018-07-17 20:00] VITALS: BP 106/65
[2018-07-17] MEDS: SERTRALINE HCL 50 MG TAB PO SCH (21:55)
[2018-07-18] VITALS (7 sets, daily range): BP systolic 92–126; BP diastolic 50–69
[2018-07-18] MEDS: ENOXAPARIN 60 MG/0.6 ML SYR (J1650) SC SCH ×2 (00:11→12:23)
[2018-07-18] MEDS: FUROSEMIDE 100 MG/10 ML VIAL (J1940) IV SCH ×2 (00:13→08:55)
[2018-07-18 05:46] LABS: BLOOD UREA NITROGEN 20 MG/DL (7-18); CALCIUM LEVEL 8.6 MG/DL (8.8-10.2); CARBON DIOXIDE LEVEL 28 MEQ/L (21-32); CHLORIDE LEVEL 99 MEQ/L (98-107); CREATININE FOR GFR 0.91 MG/DL (0.55-1.30); GLOMERULAR FILTRATION RATE > 60.0 (>39); GLUCOSE, FASTING 153 MG/DL (70-100); SODIUM LEVEL 136 MEQ/L (136-145)
[2018-07-18 05:51] LABS: INR 1.74; PROTHROMBIN TIME 20.6 SECONDS (12.1-14.4)
[2018-07-18] MEDS: HumaLOG INSULIN (NovoLOG) PER UNIT SC SCH ×4 (08:56→21:00)
[2018-07-18] MEDS: SPIRONOLACTONE 25 MG TAB PO SCH ×2 (08:56→17:00)
[2018-07-18] MEDS: guaiFENesin ER 600 MG TAB PO SCH ×2 (08:56→21:30)
[2018-07-18] MEDS: DIGOXIN 0.125 MG TAB PO SCH (08:57)
[2018-07-18] MEDS: SINEMET 25-100 MG TAB PO SCH ×3 (08:57→21:30)
[2018-07-18] MEDS: PRAVASTATIN 20 MG TAB PO SCH (08:57)
[2018-07-18] MEDS: METOPROLOL SUCC (TopROL XL) 100MG *XL* TAB PO SCH (08:57)
[2018-07-18] MEDS: POTASSIUM CHLORIDE 10 MEQ SR TABLET PO SCH ×2 (08:57→21:30)
--- NOTE | 2018-07-18 10:20 | IPNPDOC ---
Subjective Date Seen The patient was seen on 07/18/18. Subjective Chief Complaint/HPI Patient comfortable level. No new complaints. at the bedside General: Reports: Normal Appetite; Denies: Chills, Night Sweats, Fatigue, Malaise Constitutional: Denies: Chills, Fever, Night Sweats Eyes: Denies: Pain, Vision change ENT: Denies: Head Aches, Ear Pain, Dysphagia Skin: Denies: Rash, Lesions, Breakdown Pulmonary: Denies: Dyspnea, Cough Cardiovascular: Denies: Chest Pain, Palpitations, Orthopnea, Paroxysmal Noc. Dyspnea, Lt Headedness Gastrointestinal: Denies: Nausea, Vomiting, Abdominal Pain, Diarrhea, Constipation Genitourinary: Denies: Dysuria, Frequency, Incontinence, Retention Hematologic: Denies: Bruising, Bleeding Excessively Musculoskeletal: Denies: Neck Pain, Back Pain, Joint Pain, Muscle Pain, Spasms Neurological: Denies: Weakness, Numbness, Change in speech, Confusion Psych: Reports: Mood Normal; Denies: Depression, Memory Issues Objective Physical Examination General Exam: Positive: Alert, No Acute Distress Eye Exam: Positive: PERRLA, Conjunctiva & lids normal, EOMI; Negative: Sclera icteric ENT Exam: Positive: Atraumatic, Mucous membr. moist/pink, Pharynx Normal Neck Exam: Positive: Supple; Negative: JVD, thyromegaly Chest Exam: Positive: Clear to auscultation, Normal air movement, Other (crackles at bases) Heart Exam: Positive: Rate Normal, Normal S1, Normal S2; Negative: Murmurs, Rubs Telemetry: Positive: No significant arrhythmia, Tachycardia Abdomen Exam: Positive: Normal bowel sounds, Soft; Negative: Tenderness, Hepatospenomegaly Female Exam: Positive: Nl Ext Genitalia; Negative: Lesions, Discharge, Odor, Tenderness Extremity Exam: Positive: Normal pulses; Negative: Clubbing, Cyanosis, Edema Skin Exam: Positive: Nl turgor and temperature; Negative: Rash, Breakdown Neuro Exam: Positive: Normal Gait, Normal Speech, Cranial Nerves 3-12 NL, Reflexes 2+ Psych Exam: Positive: Mental status NL, Mood NL, Oriented x 3 Assessment /Plan Problems (1) Congestive heart failure (CHF) Status: Acute Problem Text: Cardiology follow-up appreciated Patient is currently on spironolactone 25 mg twice a day and furosemide 80 mg every 8 hours with good response Possible transfe for cardiac cath in a.m. INR is subtherapeutic now Start patient on Lovenox 1 mg/kg every 12 hours as per cardiology recommendations Patient and family aware about the care and management. Agree with the plan Will prescribe Robitussin-DM when necessary for cough (2) Supratherapeutic INR Status: Acute Problem Text: Slowly improving off Coumadin at the present time is 1.7 Follow INR in a.m., possibly bring INR down to 1.5 before transfer Lovenox 1 mg/kg every 12 hours on (3) Diabetes mellitus Problem Text: Continue home medications FS blood sugar every before meals and at bedtime with coverage (4) Atrial fibrillation Problem Text: Ventricular rate slowly improving. Current medications Cardiology follow-up was really appreciated Continue close monitoring Continue present meds Plan/VTE VTE Prophylaxis Ordered?: Yes VS, I&O, 24H, Fishbone Vital Signs/I&O Vital Signs Date Time Temp Pulse Resp B/P (MAP) Pulse Ox O2 Delivery O2 Flow Rate FiO2 07/18/18 08:57 114 07/18/18 08:57 106/62 07/18/18 08:00 98.9 17 95 07/13/18 05:11 Room Air I&O- Last 24 Hours up to 6 AM 07/18/18 06:00 Intake Total 1080 ml Output Total 2225 ml Balance -1145 ml Laboratory Data 24H LABS Laboratory Tests 2 07/17/18 11:54: Bedside Glucose (Misc Panel) 273H 07/17/18 17:07: Bedside Glucose (Misc Panel) 105 07/17/18 21:53: Bedside Glucose (Misc Panel) 144H 07/18/18 04:58: Prothrombin Time 20.6H, Prothromb Time International Ratio 1.74, Anion Gap 9, Glomerular Filtration Rate > 60.0, Blood Urea Nitrogen 20H, Creatinine 0.91, Sodium Level 136, Potassium Level 4.0, Chloride Level 99, Carbon Dioxide Level 28, Calcium Level 8.6L CBC/BMP Laboratory Tests 07/18/18 04:58 Calcium Level 8.6 L RILEY RAMOS MD Jul 18, 2018 10:19
[2018-07-18] MEDS ORDERED: DIGOXIN 0.125 MG TAB PO ONE (11:00)
[2018-07-18] MEDS: FUROSEMIDE 40 MG/4 ML VIAL (J1940) IV SCH (17:00)
[2018-07-18] MEDS: SERTRALINE HCL 50 MG TAB PO SCH (21:30)
[2018-07-19] MEDS: FUROSEMIDE 40 MG/4 ML VIAL (J1940) IV SCH ×2 (00:09→08:38)
[2018-07-19] MEDS: ENOXAPARIN 60 MG/0.6 ML SYR (J1650) SC SCH (00:09)
[2018-07-19 00:16] VITALS: BP 119/64
[2018-07-19 04:00] VITALS: BP 112/55
[2018-07-19 05:21] LABS: INR 1.53; PROTHROMBIN TIME 18.6 SECONDS (12.1-14.4)
[2018-07-19 05:32] LABS: BLOOD UREA NITROGEN 18 MG/DL (7-18); CALCIUM LEVEL 8.6 MG/DL (8.8-10.2); CARBON DIOXIDE LEVEL 30 MEQ/L (21-32); CHLORIDE LEVEL 98 MEQ/L (98-107); CREATININE FOR GFR 0.93 MG/DL (0.55-1.30); GLOMERULAR FILTRATION RATE > 60.0 (>39); GLUCOSE, FASTING 155 MG/DL (70-100); POTASSIUM SERUM 4.1 MEQ/L (3.5-5.1); SODIUM LEVEL 135 MEQ/L (136-145)
[2018-07-19 08:00] VITALS: BP 129/56
[2018-07-19] MEDS: SINEMET 25-100 MG TAB PO SCH (08:39)
[2018-07-19] MEDS: SPIRONOLACTONE 25 MG TAB PO SCH (08:39)
[2018-07-19] MEDS: DIGOXIN 0.125 MG TAB PO SCH (08:39)
[2018-07-19 08:40] VITALS: BP 129/56
[2018-07-19] MEDS: METOPROLOL SUCC (TopROL XL) 100MG *XL* TAB PO SCH (08:40)
[2018-07-19] MEDS: HumaLOG INSULIN (NovoLOG) PER UNIT SC SCH (08:41)
--- NOTE | 2018-07-19 09:03 | DSES ---
DATE OF ADMISSION: 07/13/2018 DATE OF TRANSFER: CONSULTANTS: Dr. Bustos and Dr. Schuster ACCEPTING PHYSICIAN: [facility] in [place], Dr. Díaz. PRIMARY CARE PROVIDER: Dr. Jp Prieto. PRINCIPAL DIAGNOSIS: Right sided heart failure secondary to severe mitral stenosis. SECONDARY DIAGNOSES: 1. Chronic atrial fibrillation. 2. Supratherapeutic INR. Patti Wallace is a 72-year-old. I assumed her care today, which is the day she is being transferred to [facility] in [place] for heart catheterization. She was admitted with congestive heart failure with an ejection fraction of 55% on a recent echocardiogram. Has a history of mitral valve repair and now has mitral stenosis with mitral regurgitation. SHe has a history of type 2 diabetes, atrial fibrillation, Parkinson's disease. HOSPITAL COURSE: The patient was admitted to a progressive care unit (PCU) bed. She was diuresed and had a fairly good diureses, it looks like she put out almost 10 liters of fluid over the course of her hospitalization. She is stabilized hemodynamically. Her INR was 3.4 on admission and now it is down to 1.5 now with some Lovenox support while off her warfarin. She was seen by cardiology and their assistance was appreciated. On the day of transfer, she is resting comfortably, visiting with her family. Her blood pressure is 112/55, pulse of 80, respiratory rate 18, 94% oxygen saturation. She is afebrile at 98.8. GENERAL APPEARANCE: Appears healthy and well. HEENT: Unremarkable. LUNGS: Clear. HEART: Regular rate and rhythm with a 2/6 holosystolic murmur at the bases and 1/4 diastolic rumble. ABDOMEN: Soft, nontender. No masses. EXTREMITIES: No peripheral edema. Good distal pulses. LABORATORIES: Today, sodium 135, potassium 4.1, BUN 18, creatinine 0.9, glucose 155, INR 1.5, white count 11.4, hemoglobin 12.4, platelets 301. Blood sugars have been generally less than 200. DISPOSITION: The patient is transferred to [facility] in [place] under the care of Dr. Díaz for left and right heart catheterization. She is being prepared for the usual transport. Her activity is as tolerated. She is on no added salt diet. CURRENT MEDICATIONS: - IV Lasix 40 mg every 8 hours - digoxin 0.125 mg daily - Lovenox 60 mg every 12 hours - Mucinex ER 600 mg twice a day - sliding scale of insulin based upon fingerstick blood sugars - spironolactone 25 mg twice a day - sertraline 50 mg daily - Sinemet 25/100 one tablet three times a day - Toprol XL 200 mg daily - potassium chloride 10 mEq twice a day - pravastatin 20 mg daily - Xanax 0.125 mg twice a day as needed She is to followup with Dr. Prieto and her hostler helper the week after discharge. No added salt diet advised.
== END 2018-07-19 09:55 | disposition short-term general hospital (02) | DRG 291 ==
LOC: M ED 02:27 → M ED INP 05:38 → M PCU 06:37
PROVIDERS: ADMIT Student in an Organized Health Care Education/Training Program; ATTEND Family Medicine
DX: I13.0 Hypertensive heart and chronic kidney disease with heart failure and stage 1 through stage 4 chronic kidney disease, or unspecified chronic kidney disease (principal); I50.33 Acute on chronic diastolic (congestive) heart failure; I34.0 Nonrheumatic mitral (valve) insufficiency; I48.2 Chronic atrial fibrillation; E11.9 Type 2 diabetes mellitus without complications; G20 Parkinson's disease; Z79.899 Other long term (current) drug therapy; Z79.01 Long term (current) use of anticoagulants; Z88.2 Allergy status to sulfonamides; E78.5 Hyperlipidemia, unspecified; N18.9 Chronic kidney disease, unspecified

== ENCOUNTER → 2018-12-24 | Outpatient (CLI) | payer MEDICARE, BC ==
[2018-12-24 13:07] LABS: HEMATOCRIT 43.4 % (36.0-47.0); HEMOGLOBIN 13.9 g/dl (12.0-15.5); MEAN CORPUSCULAR HEMOGLOBIN 28.9 pg (27.0-33.0); MEAN CORPUSCULAR VOLUME 90.2 fl (80.0-96.0); PLATELET COUNT, AUTOMATED 213 10^3/uL (150-450); RED BLOOD COUNT 4.81 10^6/uL (4.00-5.40); WHITE BLOOD COUNT 9.9 10^3/uL (4.0-10.0)
[2018-12-24 13:41] LABS: CALCIUM LEVEL 10.1 MG/DL (8.8-10.2); CREATININE FOR GFR 1.36 MG/DL (0.55-1.30); GLOMERULAR FILTRATION RATE 40.4 (>39); POTASSIUM SERUM 4.2 MEQ/L (3.5-5.1)
== END ==
LOC: M LAB 11:48
PROVIDERS: ATTEND Internal Medicine Cardiovascular Disease
DX: I48.91 Unspecified atrial fibrillation (principal); I47.2 Ventricular tachycardia

== ENCOUNTER → 2019-01-17 | Outpatient (CLI) | payer MEDICARE, BC ==
[2019-01-17 11:26] LABS: INR 1.91; PROTHROMBIN TIME 21.7 SECONDS (11.8-14.0)
== END ==
LOC: M LAB 10:27
PROVIDERS: ATTEND Internal Medicine Cardiovascular Disease
DX: I48.91 Unspecified atrial fibrillation (principal)

== ENCOUNTER 2019-07-01 16:37 | Emergency (ER) | payer MEDICARE, BC ==
[~2019-07-01] VITALS: Ht 162.6 cm; Wt 57.1 kg
[~2019-07-01 16:37] MED LIST changes: -GNP150TA PO; +[UNRECOGNIZED DRUG - CODE] PO
[2019-07-01] MEDS ORDERED: PRAV20TA2 PO (17:45)
[2019-07-01] MEDS ORDERED: PROBCAP14 PO (17:45)
[2019-07-01] MEDS ORDERED: METF-839 PO (17:45)
[2019-07-01] MEDS ORDERED: NADO80TA PO (17:45)
[2019-07-01] MEDS ORDERED: ELIQ5TAB PO (17:45)
[2019-07-01] MEDS ORDERED: POTASSIUM CHLORIDE 10 MEQ SR TABLET PO ONE (17:45)
[2019-07-01] MEDS ORDERED: BIOT2500 PO (17:45)
[2019-07-01] MEDS ORDERED: ZOLO50TA PO (17:45)
[2019-07-01] MEDS ORDERED: ASPI81CH33 PO (17:45)
[2019-07-01] MEDS ORDERED: POTA20TA6 PO (17:45)
[2019-07-01] MEDS ORDERED: FURO80TA2 PO (17:45)
[2019-07-01] MEDS ORDERED: CARB25TA9 PO (17:45)
[2019-07-01] MEDS ORDERED: prevagen (17:45)
[2019-07-01] MEDS ORDERED: JANU100T PO (17:45)
[2019-07-01] MEDS ORDERED: MULT1TAB50 PO (17:45)
[2019-07-01 17:54] LABS: BASO # 0.1 10^3/uL (0.0-0.2); BASO % 0.6 % (0.0-1.0); EOS # 0.5 10^3/uL (0.0-0.5); EOS % 4.9 % (0.0-3.0); HEMOGLOBIN 13.4 g/dl (12.0-15.5); LYMPH # 1.6 10^3/uL (1.5-5.0); LYMPH % 17.2 % (24.0-44.0); MEAN CORPUSCULAR HGB CONC 31.9 g/dl (32.0-36.5); MEAN CORPUSCULAR VOLUME 97.2 fl (80.0-96.0); MONO # 1.3 10^3/uL (0.0-0.8); MONO % 13.4 % (0.0-5.0); NEUTROPHILS % 63.6 % (36.0-66.0); PLATELET COUNT, AUTOMATED 193 10^3/uL (150-450); RED BLOOD COUNT 4.32 10^6/uL (4.00-5.40); WHITE BLOOD COUNT 9.5 10^3/uL (4.0-10.0)
--- NOTE | 2019-07-01 17:57 | REPVR ---
PROCEDURE INFORMATION: Exam: US Duplex Left Lower Extremity Veins, Limited Exam date and time: 07/01/2019 5:45 PM Age: 73 years old Clinical indication: Pain; Leg, lower; Left; Additional info: Swelling/tender. Please also US area of ecchymosis TECHNIQUE: Imaging protocol: Real-time Duplex ultrasound of the Left Lower Extremity with 2-D valente scale, color Doppler flow and spectral waveform analysis with image documentation. Limited exam focused on the left lower extremity veins. COMPARISON: No relevant prior studies available. FINDINGS: Left deep veins: Unremarkable. The common femoral, femoral, proximal profunda femoral and popliteal veins are patent without thrombus. Normal Doppler waveforms. Normal compressibility and/or augmentation response. Left superficial veins: Unremarkable. Saphenofemoral junction is patent without thrombus. Soft tissues: At site of patient's pain and erythema there is soft tissue edema with hypoechoic region which may represent a more localized fluid collection measuring 4 by 1 by 1.9 cm in the left medial calf. There is no increased blood flow in the surrounding soft tissues. IMPRESSION: No evidence of deep vein thrombosis. There is edema and possible fluid collection measuring 4 cm in greatest dimension left medial calf which could be due to cellulitis, seroma, resolving hematoma and or abscess although no increased blood flow is seen. Electronically signed by: Jessica Hernandez On 07/01/2019 17:57:12 PM
[2019-07-01 18:05] LABS: ALBUMIN 3.9 GM/DL (3.2-5.2); BILIRUBIN,DIRECT 0.3 MG/DL (0.0-0.2); BILIRUBIN,TOTAL 0.9 MG/DL (0.2-1.0); C REACTIVE PROTEIN QUANTITATIV 0.4 MG/DL (0.00-0.30); TOTAL PROTEIN 7.9 GM/DL (6.4-8.2)
[2019-07-01 18:06] LABS: INR 1.54; PROTHROMBIN TIME 18.2 SECONDS (11.8-14.0)
[2019-07-01 18:07] LABS: PARTIAL THROMBOPLASTIN TIME 43.9 SECONDS (25.0-38.4)
[2019-07-01 18:42] LABS: ERYTHROCYTE SEDIMENTATION RATE 19 mm/hr (0-30)
[2019-07-01] MEDS ORDERED: LOSA25TA14 PO (19:34)
[2019-07-01] MEDS ORDERED: NADO40TA PO (19:35)
[2019-07-01] MEDS ORDERED: LOSARTAN 25 MG TAB PO ONE (19:45)
[2019-07-01 19:54] VITALS: BP 192/75
--- NOTE | 2019-07-04 16:34 | ECGEPIP ---
[facility] - ED Test Date: 2019-07-01 Pat Name: JORGE WYMAN Department: Room: - Gender: Female Audio Visual Specialist: : [id number] Requested By: LEILA BARNES PA-C Order Number: [id number] Reading MD: Pito Brar Measurements Intervals [place] Rate: 42 P: -23 MI: 228 QRS: 28 QRSD: 101 T: 47 QT: 515 QTc: 432 Interpretive Statements PROBABLE SINUS BRADYCARDIA WITH FIRST DEGREE AV BLOCK MODERATE ST DEPRESSION CW 07/13/18 RHYTHM CHANGE RATE SLOWER NONSPECIFIC ST T WAVE CHANGES Electronically Signed on 07-04-2019 16:34:14 EDT by Pito Brar
== END 2019-07-01 20:07 | disposition home or self-care (01) ==
LOC: M ED 16:37
DX: I16.0 Hypertensive urgency (principal); R00.1 Bradycardia, unspecified; M79.81 Nontraumatic hematoma of soft tissue; M79.662 Pain in left lower leg; I50.9 Heart failure, unspecified; I48.91 Unspecified atrial fibrillation; E11.9 Type 2 diabetes mellitus without complications; G20 Parkinson's disease; K21.9 Gastro-esophageal reflux disease without esophagitis; F41.9 Anxiety disorder, unspecified; Z79.01 Long term (current) use of anticoagulants; Z79.82 Long term (current) use of aspirin; Z79.84 Long term (current) use of oral hypoglycemic drugs; Z79.899 Other long term (current) drug therapy; Z88.2 Allergy status to sulfonamides

== ENCOUNTER → 2019-12-30 | Outpatient (CLI) | payer MEDICARE, BC ==
[~2019-12-30] MED LIST changes: +ASPI81CH33 PO; +BIOT2500 PO; +ELIQ5TAB PO; +FURO80TA2 PO; +LOSA25TA14 PO; +METF-839 PO; +MULT1TAB50 PO; +NADO40TA PO; +NADO80TA5 PO; +POTA20TA6 PO; +PRAV20TA2 PO; +PROBCAP14 PO; +ZOLO50TA PO; +prevagen
== END ==
LOC: M LABSMTC 11:35
PROVIDERS: ATTEND Internal Medicine Cardiovascular Disease
DX: Z20.828 Contact with and (suspected) exposure to other viral communicable diseases (principal)
CPT/HCPCS: C9803; U0003

== ENCOUNTER 2020-07-15 16:28 | Emergency (ER) | payer MEDICARE, BC ==
[2020-07-15] MEDS ORDERED: FAMO1TAB11 PO (16:46)
[2020-07-15 19:13] LABS: BASO # 0.1 10^3/uL (0.0-0.2); BASO % 0.5 % (0.0-1.0); EOS # 0.1 10^3/uL (0.0-0.5); HEMATOCRIT 40.8 % (36.0-47.0); HEMOGLOBIN 12.7 g/dl (12.0-15.5); LYMPH % 7.7 % (24.0-44.0); MEAN CORPUSCULAR HEMOGLOBIN 29.3 pg (27.0-33.0); MEAN CORPUSCULAR HGB CONC 31.1 g/dl (32.0-36.5); MONO # 1.2 10^3/uL (0.0-0.8); MONO % 9.2 % (2.0-8.0); NEUTROPHILS # 10.8 10^3/uL (1.5-8.5); NEUTROPHILS % 81.3 % (36.0-66.0); PLATELET COUNT, AUTOMATED 233 10^3/uL (150-450); RED BLOOD COUNT 4.34 10^6/uL (4.00-5.40); WHITE BLOOD COUNT 13.2 10^3/uL (4.0-10.0)
--- NOTE | 2020-07-15 19:18 | REP ---
INDICATION: fall COMPARISON: None. TECHNIQUE: AP and lateral bilateral lower legs. FINDINGS: There is no evidence of acute fracture, dislocation, or intrinsic bone disease.There is diffuse chondrocalcinosis at the knee joints bilaterally. IMPRESSION: No fracture or dislocation. <Electronically signed by George Howard > 07/15/201914
[2020-07-15 19:26] LABS: INR 1.33; PROTHROMBIN TIME 16.8 SECONDS (12.5-14.3)
--- NOTE | 2020-07-15 19:26 | REP ---
INDICATION: leg swelling COMPARISON: 07/01/2019. TECHNIQUE: Real time compression and duplex Doppler interrogation of the left lower extremity deep venous system is performed. FINDINGS: The left common femoral, superficial femoral and popliteal veins are fully compressible with transducer pressure and demonstrate normal spontaneous and phasic flow, without evidence of deep venous thrombosis. There is a Michel's cyst measuring 4.6 x 0.9 x 2.1 cm. IMPRESSION: No evidence of deep venous thrombosis of the left lower extremity femoral popliteal venous system. There is Michel's cyst measuring 4.6 x 0.9 x 2.1 cm. <Electronically signed by Geroge Howard > 07/15/20 1925
[2020-07-15 19:27] LABS: PARTIAL THROMBOPLASTIN TIME 34.2 SECONDS (24.2-38.5)
[2020-07-15 19:52] LABS: ALBUMIN 4.1 GM/DL (3.2-5.2); BILIRUBIN,DIRECT 0.2 MG/DL (0.0-0.2); BILIRUBIN,TOTAL 0.5 MG/DL (0.2-1.0); CALCIUM LEVEL 9.7 MG/DL (8.8-10.2); CREATININE FOR GFR 1.06 MG/DL (0.55-1.30); GLOMERULAR FILTRATION RATE 53.7 (>39); POTASSIUM SERUM 3.7 MEQ/L (3.5-5.1); TOTAL PROTEIN 7.4 GM/DL (6.4-8.2)
[2020-07-15] MEDS ORDERED: LIDOCAINE 1% MDV 20ML VIAL SC ONE ×2 (20:25→21:35)
[2020-07-15] MEDS ORDERED: LIDOCAINE 1% MDV 20ML VIAL As Ordered ONE (21:35)
[2020-07-15 23:17] VITALS: BP 144/69
--- NOTE | 2020-07-16 09:14 | CR ---
CONSULTATION DATE: 07/15/2020 REASON FOR CONSULTATION: Hematoma, right lower leg. HISTORY OF PRESENT ILLNESS: The patient is a 74-year-old woman who is on multiple medications including Eliquis for some underlying heart disease with atrial fibrillation. She is also on some medication for Parkinson's. She apparently was walking at about one o'clock in the afternoon on a path and suffered a fall, falling forward with her lower legs striking a stone in the path. She developed a swelling along the right walters with some bruising of the left. She was initially seen at an urgent care center and she was then referred to the emergency department at [facility] for evaluation. She was noted to have a raised hematoma about 5 x 7 cm, irregular in shape that was quite tense and uncomfortable. I was asked to evaluate this for consideration of drainage. ALLERGIES: The patient reports an allergy to SULFA ANTIBIOTICS. MEDICATIONS: Include: - Eliquis - Carbidopa/Levodopa - famotidine - Furosemide - Metformin - Pravastatin - Sertraline - Januvia SURGICAL HISTORY: The patient has undergone some sort of mitral valve repair in the past. She had a pacemaker implanted in [place] in June of this year. 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 MEDICAL HISTORY: Significant for atrial fibrillation. She has some mitral valvular disease. She has a history of Parkinson's disease, and congestive heart failure and hypertension. She has a history of gastroesophageal reflux. She has a history of anxiety and diabetes as well. FAMILY HISTORY: Noncontributory. SOCIAL HISTORY: Significant for her being and her accompanied her to the emergency department. REVIEW OF SYSTEMS: Reveals no other active symptoms associated with this incident. PHYSICAL EXAMINATION: Physical examination of the lower extremities reveals palpable dorsalis pedis pulses bilaterally. She has a very definite raised hematoma of the right mid walters. This is irregular in shape and approximately 7 cm wide and 5 cm long. There is no definite break in the skin but this is tensely distended and darkly purple-black in coloration. On the left-hand side, down by the ankle anteriorly she has an area of bruising that is somewhat less distinct, about 2-2.5 cm across. There is another faint area of bruising up closer to the tibial tuberosity. There is some faint erythema involving the anterior walters on the left. IMAGING DATA: The patient had x-rays of both lower legs, which showed no fracture. She had an ultrasound of the left leg where she has some edema, which showed no evidence of deep vein thrombosis. LABORATORY DATA: She did have some labs that showed a white count of 13, hemoglobin 13, hematocrit 41 and a platelet count of 233,000. Chemistries showed normal electrolytes with the exception of a carbon dioxide of 33. BUN was 24 with a creatinine of 1, and a glucose of 115. IMPRESSION: The patient has a definite hematoma of the right walters. This is tensely distended with significant discomfort. There is not a definite break in the skin and there is no bleeding at this time. She is on Eliquis and I have no doubt that this has contributed to this hematoma. I discussed with the patient and her that we could leave this alone and wait for it to heal on its own. I advised them it would probably take quite awhile for the hematoma to absorb and with the tense distention of the skin, I am somewhat concerned that she could have necrosis of the overlying skin which would lead to a protracted course of healing. The alternative would be to consider drainage of this area. We discussed the possibility of aspiration and I advised them that I doubt this would be successful as the blood would likely have congealed to some extent by this point and not be amenable to aspiration. I advised them that even if we drain this, the skin may be damaged enough that she will still have loss of some of the overlying skin and potentially ultimately require a skin graft. If we open it, there is also the chance that she would develop an infection in the wound and that would also cause further problems. After some discussion and the opportunity to answer the patient's questions, she decided that she would prefer to have this drained. PLAN: The patient was counseled for drainage of the hematoma of the right anterior walters. The right lower leg anteriorly and on both sides was prepped with a ChloraPrep prep stick. The area was draped sterilely. Local anesthesia was achieved with 1% Xylocaine at the inferior end of the hematoma. I inserted an 18-gauge needle through the numbed area and was unable to withdraw anything but a drop or two of bloody fluid. I, therefore, made an approximately 1-1.5 cm longitudinal incision. A sterile suction was inserted through the opening in the skin and used to suction all the old blood and clot from the wound that would readily drain. There were areas where the blood appeared to be entrapped within the skin or in the subcutaneous tissues, and did not return. There was certainly some loosening of the tightness of the overlying skin although there was evidence for some edema or even blistering at the skin in the central portion of the wound that was more apparent after draining some of the fluid. After the fluid had been drained, I held some gentle pressure over the area and monitored for evidence of continued bleeding. Once there did not appear to be any significant ongoing bleeding, the incision was closed with several sutures of 5-0 nylon. The hematoma and the incision was covered with Xeroform gauze and a bulky bandage of gauze followed by a Kerlix, followed by a somewhat loosely applied Ryan wrap was placed. The patient tolerated the procedure well without apparent complication. She was counseled to follow up in my office on the 16 of July at 2:15 in the afternoon. She was counseled to keep her leg elevated tonight and to hold her Eliquis for tonight and the following morning. She can take Tylenol as needed for discomfort. ZENA
== END 2020-07-15 23:33 | disposition home or self-care (01) ==
LOC: M ED 16:28
DX: S00.511A Abrasion of lip, initial encounter (principal); S00.81XA Abrasion of other part of head, initial encounter; S80.10XA Contusion of unspecified lower leg, initial encounter; I73.9 Peripheral vascular disease, unspecified; M71.22 Synovial cyst of popliteal space [Baker], left knee; W19.XXXA Unspecified fall, initial encounter; Y92.009 Unspecified place in unspecified non-institutional (private) residence as the place of occurrence of the external cause; Y93.9 Activity, unspecified; Y99.9 Unspecified external cause status; R22.43 Localized swelling, mass and lump, lower limb, bilateral; I48.91 Unspecified atrial fibrillation; I50.9 Heart failure, unspecified; K21.9 Gastro-esophageal reflux disease without esophagitis; E78.5 Hyperlipidemia, unspecified; Z95.0 Presence of cardiac pacemaker; Z95.4 Presence of other heart-valve replacement; Z79.01 Long term (current) use of anticoagulants; Z79.84 Long term (current) use of oral hypoglycemic drugs; Z79.899 Other long term (current) drug therapy; Z88.2 Allergy status to sulfonamides

== ENCOUNTER → 2021-03-27 | Outpatient (CLI) | payer MEDICARE, BC ==
[~2021-03-27] MED LIST changes: +FAMO1TAB11 PO; -KLOR10TA76 PO; +POTA-136 PO
--- NOTE | 2021-03-27 11:41 | REPMRS ---
Patient History The patient states she had a clinical breast exam in March 2020. Patient is postmenopausal. No known family history of cancer. Tomosynthesis is performed. Volpara breast density is d. Rojaser-magdielck lifetime risk of breast cancer 3.1%. Covid vaccines 05/2020 left arm. 05/2020 right arm. 02/2021 right arm. Patient states no breast complaints today. Patient has signed MRS History Sheet. Digital Woman Screen Mammo: March 27, 2021 - Exam #: [id number] Bilateral CC and MLO view(s) were taken. Technologist: RT Peri Prior study comparison: October 27, 2014, digital woman screen mammo performed at [facility]. September 12, 2013, digital bilateral screening mammo, performed at [facility]. FINDINGS: The breast tissue is heterogeneously dense. This may lower the sensitivity of mammography. There has been no change in the appearance of the mammogram from the prior studies. There is a moderate amount of residual fibroglandular tissue which is fairly symmetric. There is no interval development of dominant mass, areas of architectural distortion, or clustered microcalcification typical of malignancy. Assessment: BI-RADS/ACR category 1 mammogram. Negative Mammogram. Recommendation Routine screening mammogram in 1 year (for women over age 40). This mammogram was interpreted with the aid of an FDA-approved computer-aided dectection system. Electronically Signed By: George Howard MD 03/27/21 [id number]
--- NOTE | 2021-03-27 14:24 | DEXAMM ---
INDICATION: SCR MAMMO/OSTEOPOROSIS. COMPARISON: 02/20/2017, 11/12/2007 TECHNIQUE: Bone density was measured using dual-energy x-ray absorptionmetry (DEXA). FINDINGS: AP SPINE L1-L4 BMD 1.07 g/cm2 Young Adult T-Score -1.0 Age Matched Z-Score 0.8. LT FEMUR, TOTAL BMD 0.69 g/cm2 Young Adult T-Score -2.5 Age Matched Z-Score -0.6. LT NECK BMD 0.59 g/cm2 Young Adult T-Score -3.2 Age Matched Z-Score -1.2. RT FEMUR, TOTAL BMD 0.70 g/cm2 Young Adult T-Score -2.4 Age Matched Z-Score -0.5. RT NECK BMD 0.65 g/cm2 Young Adult T-Score -2.8 Age Matched Z-Score -0.8. IMPRESSION: There is low bone density of the spine. There is low bone density of the left hip. There is low bone density of the right hip. The density of the spine has decreased 5% since the initial exam on 2007. The density of the spine decreased 3% since most recent exam on 2016. The density of the left hip has decreased 26% since initial exam on 2007. The density of the left hip has decreased 17% since most recent exam on 2017. The density of the right hip has decreased 24% since the initial exam on 2007. The density of the right hip has decreased 19% since the most recent exam on 2017. FOLLOW-UP: Recommendation for the next bone density exam: 2 years. <Electronically signed by Daniel Isabel > 03/27/21 [id number]
== END ==
LOC: M WHC 08:53
PROVIDERS: ATTEND Family Medicine
DX: Z12.31 Encounter for screening mammogram for malignant neoplasm of breast (principal); Z13.820 Encounter for screening for osteoporosis; M85.88 Other specified disorders of bone density and structure, other site; M85.851 Other specified disorders of bone density and structure, right thigh; M85.852 Other specified disorders of bone density and structure, left thigh

== ENCOUNTER 2021-11-01 06:59 | Emergency (ER) | payer MEDICARE, BC ==
[~2021-11-01 06:59] MED LIST changes: +LOSA25TA13 PO; -LOSA25TA14 PO; +POTA-151 PO; -POTA20TA6 PO
[2021-11-01 07:57] LABS: BASO # 0.1 10^3/uL (0.0-0.2); BASO % 0.8 % (0.0-1.0); EOS # 0.2 10^3/uL (0.0-0.5); EOS % 2.6 % (0.0-3.0); HEMATOCRIT 35.1 % (36.0-47.0); LYMPH # 0.8 10^3/uL (1.5-5.0); LYMPH % 11.5 % (24.0-44.0); MEAN CORPUSCULAR HEMOGLOBIN 28.7 pg (27.0-33.0); MEAN CORPUSCULAR HGB CONC 31.3 g/dl (32.0-36.5); MEAN CORPUSCULAR VOLUME 91.6 fl (80.0-96.0); MONO # 0.6 10^3/uL (0.0-0.8); MONO % 9.5 % (2.0-8.0); NEUTROPHILS # 4.9 10^3/uL (1.5-8.5); NEUTROPHILS % 75.4 % (36.0-66.0); PLATELET COUNT, AUTOMATED 212 10^3/uL (150-450); RED BLOOD COUNT 3.83 10^6/uL (4.00-5.40); WHITE BLOOD COUNT 6.5 10^3/uL (4.0-10.0)
[2021-11-01 08:08] LABS: INR 1.39; PROTHROMBIN TIME 17.5 SECONDS (12.7-14.5)
[2021-11-01 08:09] LABS: PARTIAL THROMBOPLASTIN TIME 41.2 SECONDS (25.9-37.0)
[2021-11-01 10:00] VITALS: BP 127/69
== END 2021-11-01 10:10 | disposition home or self-care (01) ==
LOC: EDBD 06:59 → M ED 08:20
DX: S80.811A Abrasion, right lower leg, initial encounter (principal); X58.XXXA Exposure to other specified factors, initial encounter; Y92.099 Unspecified place in other non-institutional residence as the place of occurrence of the external cause; I48.91 Unspecified atrial fibrillation; I50.9 Heart failure, unspecified; E11.9 Type 2 diabetes mellitus without complications; I10 Essential (primary) hypertension; E78.5 Hyperlipidemia, unspecified; G20 Parkinson's disease; Z85.820 Personal history of malignant melanoma of skin; Z79.01 Long term (current) use of anticoagulants; Z79.84 Long term (current) use of oral hypoglycemic drugs; Z79.899 Other long term (current) drug therapy; Z88.2 Allergy status to sulfonamides

== ENCOUNTER 2021-11-11 10:56 | Emergency (ER) | payer MEDICARE, BC ==
[~2021-11-11] VITALS: Ht 162.6 cm; Wt 57.7 kg
[2021-11-11 10:56] VITALS: BP 127/61
[2021-11-11 14:07] LABS: BASO # 0.1 10^3/uL (0.0-0.2); BASO % 0.6 % (0.0-1.0); EOS # 0.2 10^3/uL (0.0-0.5); EOS % 2.2 % (0.0-3.0); HEMATOCRIT 38.8 % (36.0-47.0); HEMOGLOBIN 11.8 g/dl (12.0-15.5); LYMPH # 1.3 10^3/uL (1.5-5.0); LYMPH % 13.7 % (24.0-44.0); MEAN CORPUSCULAR HEMOGLOBIN 28.4 pg (27.0-33.0); MEAN CORPUSCULAR HGB CONC 30.4 g/dl (32.0-36.5); MEAN CORPUSCULAR VOLUME 93.5 fl (80.0-96.0); MONO # 1.1 10^3/uL (0.0-0.8); MONO % 11.5 % (2.0-8.0); NEUTROPHILS # 6.7 10^3/uL (1.5-8.5); NEUTROPHILS % 71.7 % (36.0-66.0); PLATELET COUNT, AUTOMATED 266 10^3/uL (150-450); RED BLOOD COUNT 4.15 10^6/uL (4.00-5.40); WHITE BLOOD COUNT 9.4 10^3/uL (4.0-10.0)
== END 2021-11-11 15:21 | disposition home or self-care (01) ==
LOC: M ED 10:56
DX: R60.0 Localized edema (principal); I48.91 Unspecified atrial fibrillation; I25.10 Atherosclerotic heart disease of native coronary artery without angina pectoris; I50.9 Heart failure, unspecified; E11.9 Type 2 diabetes mellitus without complications; I10 Essential (primary) hypertension; G20 Parkinson's disease; Z85.820 Personal history of malignant melanoma of skin; Z95.0 Presence of cardiac pacemaker; Z95.2 Presence of prosthetic heart valve; Z79.01 Long term (current) use of anticoagulants; Z79.84 Long term (current) use of oral hypoglycemic drugs; Z79.899 Other long term (current) drug therapy; Z88.2 Allergy status to sulfonamides